=== PATIENT | male | born 1940 | race Caucasian/White ===

== ENCOUNTER 2017-04-22 14:46 | Emergency (ER) | payer OTHER ==
[2017-04-22 15:35] LABS: Basophils # (A) 0.1 k/uL (0-0.2); Basophils % (A) 1 %; CH 26.8; CHCM 32.3; Eosinophils # (A) 0.3 k/uL (0-0.7); Eosinophils % (A) 4 %; HCT 30.3 % (39.0-53.0); HDW 2.68; HGB 9.6 gm/dL (13.0-17.5); Hypochromasia Slight; Luc # (Auto) 0.37; Luc % (Auto) 4; Lymphocytes # (A) 1.2 k/uL (1.0-4.8); Lymphocytes % (A) 13 %; MCH 26.3 pg (25.0-35.0); MCHC 31.6 g/dL (31.0-37.0); MCV 83.2 fL (80.0-100.0); Mean Platelet Volume 7.4; Monocytes # (A) 0.5 k/uL (0-1.0); Monocytes % (A) 5 %; Neutrophils # (A) 6.9 k/uL (1.3-7.7); Neutrophils % (A) 74 %; RBC 3.64 m/uL (4.30-5.90); RDW 14.5 % (11.5-15.5); WBC 9.3 k/uL (3.8-10.6); WBC (Perox) 9.45
[2017-04-22] MEDS ORDERED: IPRATROPIUM-ALBUTEROL 3 ML NEB INHALATION STA (15:45)
[2017-04-22] MEDS ORDERED: methylPREDNISolone SOD SUCCI 125 MG/2 ML VIAL IV STA (15:46)
[2017-04-22] MEDS ORDERED: BUDESONIDE 0.5 MG/2 ML NEBU INHALATION STA (15:46)
[2017-04-22 15:47] LABS: ALT 38 U/L (21-72); AST 26 U/L (17-59); Alkaline Phosphatase 192 U/L (38-126); Anion Gap 12 mmol/L; Blood Urea Nitrogen 9 mg/dL (9-20); Calcium 8.5 mg/dL (8.4-10.2); Carbon Dioxide 23 mmol/L (22-30); Chloride 93 mmol/L (98-107); Glucose 103 mg/dL (74-99); Non-African American GFR(MDRD) >60 (>60 ml/min/1.73 sqM); Potassium 4.4 mmol/L (3.5-5.1); Sodium 128 mmol/L (137-145); Total Bilirubin 0.8 mg/dL (0.2-1.3); Total Protein 6.5 g/dL (6.3-8.2)
[2017-04-22 15:55] LABS: INR 1.2 (<1.1); Partial Thromboplastin Time 26.8 sec (22.0-30.0); Prothrombin Time 11.5 sec (9.0-12.0)
--- NOTE | 2017-04-22 15:55 | XR ---
EXAMINATION TYPE: XR chest 2V DATE OF EXAM: 04/22/2017 COMPARISON: 10/04/2015 HISTORY: Chest pain TECHNIQUE: Frontal and lateral views of the chest are obtained. FINDINGS: Heart appears enlarged. There is mild pelvic congestion. There is some pulmonary mild inte rstitial edema. There are chest leads. Thoracic aorta is atheromatous. There is no definite pleural e ffusion. IMPRESSION: There is new mild pulmonary congestion compared to old exam that is suggestive of mild h eart failure. No pleural effusion.
[2017-04-22 16:00] LABS: Creatine Kinase 97 U/L (55-170)
[2017-04-22 16:07] LABS: Creatine Kinase MB 2.1 ng/mL (0.0-2.4); Troponin I <0.012 ng/mL (0.000-0.034)
[2017-04-22 16:58] VITALS: RESP 20
--- NOTE | 2017-04-22 17:19 | ED ---
SOB HPI - General Chief Complaint: Shortness of Breath Stated Complaint: SOB Source: patient Mode of arrival: wheelchair Limitations: no limitations - History of Present Illness Initial Comments: Shortness of breath for the last to 3 weeks, he shortness of breath got worse today has a history of chronic bronchitis, asthma. He also has a component of COPD he smoked for about 20 years but he is a nonsmoker now. Eyes any chest pain no pleuritic chest pain no fever no chills according to patient hasn't no history of ischemic heart disease - Related Data Home Medications Medication Instructions Recorded Confirmed ALPRAZolam [Xanax] 0.5 mg PO HS PRN 04/22/17 04/22/17 Albuterol Nebulized [Ventolin 5 mg INHALATION QID 04/22/17 04/22/17 Nebulized] Ammonium Lactate Cream [Lac-Hydrin 1 applic TOPICAL DAILY 04/22/17 04/22/17 12% Cream] Aspirin EC [Ecotrin Low Dose] 81 mg PO DAILY 04/22/17 04/22/17 Budesonide-Formot 160-4.5 Mcg 2 puff INHALATION RT-BID 04/22/17 04/22/17 [Symbicort 160-4.5 Mcg Inhaler] Cetirizine HCl [Zyrtec] 10 mg PO DAILY 04/22/17 04/22/17 Fluticasone Propionate [Flovent 2 puff INHALATION RT-BID 04/22/17 04/22/17 Diskus] Furosemide [Lasix] 40 mg PO DAILY 04/22/17 04/22/17 Ipratropium [place] [Atrovent Hfa] 1 puff INHALATION RT-QID 04/22/17 04/22/17 Ipratropium [place] [Ipratropium 1 sprays EA NOSTRIL BID 04/22/17 04/22/17 [place] 0.03%] Ipratropium/Albuterol Sulfate 2 puff INHALATION RT-DAILY PRN 04/22/17 04/22/17 [Combivent Respimat Inhaler] Lisinopril-Hctz 20-25 mg 1 tab PO DAILY 04/22/17 04/22/17 [Zestoretic 20-25] Montelukast [Singulair] 10 mg PO DAILY 04/22/17 04/22/17 Nystatin 100,000Unit/gm Cream 1 applic TOPICAL DAILY PRN 04/22/17 04/22/17 [Mycostatin Cream] Pantoprazole [Protonix] 40 mg PO DAILY 04/22/17 04/22/17 Polyvinyl Alcohol [Artificial 1 drop BOTH EYES DAILY 04/22/17 04/22/17 Tears] Potassium Chloride [Klor-Con 10] 10 meq PO DAILY 04/22/17 04/22/17 Rosuvastatin Calcium [Crestor] 20 mg PO DAILY 04/22/17 04/22/17 Sildenafil Citrate [Viagra] 100 mg PO DAILY PRN 04/22/17 04/22/17 metFORMIN HCL [Metformin HCl] 1,000 mg PO BID 04/22/17 04/22/17 Previous Rx's Medication Instructions Recorded Furosemide [Lasix] 40 mg PO DAILY #5 tablet 04/22/17 Potassium Chloride [Klor-Con 10] 10 meq PO DAILY #5 tablet.er 04/22/17 Allergies Allergy/AdvReac Type Severity Reaction Status Date / Time cefaclor [From [facility]] Allergy Unknown Verified 04/22/17 15:45 Review of Systems ROS Statement: Those systems with pertinent positive or pertinent negative responses have been documented in the HPI. ROS Other: All systems not noted in ROS Statement are negative. Past Medical History Past Medical History: Asthma, COPD, Diabetes Mellitus, Hypertension Additional Past Medical History / Comment(s): chronic bronchitis History of Any Multi-Drug Resistant Organisms: None Reported Additional Past Surgical History / Comment(s): sharnel removal Past Psychological History: No Psychological Hx Reported Smoking Status: Former smoker Past Alcohol Use History: None Reported Past Drug Use History: None Reported General Exam - General Exam Comments Initial Comments: General: The patient is awake and alert, in no distress, and does not appear acutely ill. Skin: Skin is warm and dry and no rashes or lesions are noted. Eye: Pupils are equal, round and reactive to light, extra-ocular movements are intact; there is normal conjunctiva bilaterally. Ears, nose, mouth and throat: There are moist mucous membranes and no oral lesions. Neck: The neck is supple, there is no tenderness no JVDs noticed Cardiovascular: There is a regular rate and rhythm. Respiratory: To auscultation bilateral, crease breath sounds noticed crackles at the bases Gastrointestinal: Soft, non-distended, non-tender abdomen without masses or organomegaly noted. There is no rebound or guarding present. Bowel sounds are unremarkable. Back: There is no tenderness to palpation in the midline. There is no obvious deformity. Musculoskeletal: Normal ROM, no tenderness, There is no pedal edema. There is no calf tenderness or swelling. No cords were appreciated. Neurological: CN II-XII intact, Cranial nerves III through XII are intact. There are no obvious motor or sensory deficits. Coordination appears grossly intact. Speech is normal. Psychiatric: Cooperative, appropriate mood & affect, normal judgment. Limitations: no limitations Course Vital Signs 04/22/17 04/22/17 04/22/17 14:55 15:24 15:54 Temperature 97.3 F L Pulse Rate 96 91 Respiratory 26 H 26 H 24 Rate Blood Pressure 143/64 155/65 O2 Sat by Pulse 95 97 Oximetry 04/22/17 04/22/17 04/22/17 16:11 16:25 16:54 Temperature Pulse Rate 85 87 85 Respiratory 20 Rate Blood Pressure 129/59 O2 Sat by Pulse 98 Oximetry EKG is a sinus rhythm with the PVCs noticed right bundle branch block as well as left anterior fascicular ventricular rate is 91 NH interval is 174 QRS duration 56 QT/QTc is 428/526 and 50 mL EKG reveals normal PVCs no ST elevation noticed no ST depression noticed either Patient's labs and imaging studies were reviewed, CBC, INR, compressive metabolic panel and troponin are negative his sodium is bit low and now x-ray showed that he has a congestive heart failure based on that I recommended the patient stating hospital for serial cardiac markers and we couldn't bump up his stridor at 6 and have him seen by district scout executive and may be a quite as well but the patient is adamant that he was to go home and he is agreeable to sign the AMA form and all increase his water pill Lasix from 40 mg to 80 mg once daily for next 5 days and add some potassium as well. Now he is advised come back if if his symptoms worsen or [facility] - Reevaluation(s) Reevaluation #2: 04/22/17 17:31 Is in was offered admission for his further evaluation of his congestive heart failure so he could see district scout executive. They could do an echo and titrate his diuretics according to his needs patient wanted to leave [place] Medical Decision Making - Lab Data Result diagrams: 04/22/17 15:15 04/22/17 15:15 Lab Results 04/22/17 04/22/17 04/22/17 Range/Units 15:15 15:15 15:15 WBC 9.3 (3.8-10.6) k/uL RBC 3.64 L (4.30-5.90) m/uL Hgb 9.6 L (13.0-17.5) gm/dL Hct 30.3 L (39.0-53.0) % MCV 83.2 (80.0-100.0) fL MCH 26.3 (25.0-35.0) pg MCHC 31.6 (31.0-37.0) g/dL RDW 14.5 (11.5-15.5) % Plt Count 397 (150-450) k/uL Neutrophils % 74 % Lymphocytes % 13 % Monocytes % 5 % Eosinophils % 4 % Basophils % 1 % Neutrophils # 6.9 (1.3-7.7) k/uL Lymphocytes # 1.2 (1.0-4.8) k/uL Monocytes # 0.5 (0-1.0) k/uL Eosinophils # 0.3 (0-0.7) k/uL Basophils # 0.1 (0-0.2) k/uL Hypochromasia Slight PT (9.0-12.0) sec INR (<1.1) APTT (22.0-30.0) sec Sodium 128 L (137-145) mmol/L Potassium 4.4 (3.5-5.1) mmol/L Chloride 93 L (98-107) mmol/L Carbon Dioxide 23 (22-30) mmol/L Anion Gap 12 mmol/L BUN 9 (9-20) mg/dL Creatinine 0.83 (0.66-1.25) mg/dL Est GFR (MDRD) Af Amer >60 (>60 ml/min/1.73 sqM) Est GFR (MDRD) Non-Af >60 (>60 ml/min/1.73 sqM) Glucose 103 H (74-99) mg/dL Calcium 8.5 (8.4-10.2) mg/dL Total Bilirubin 0.8 (0.2-1.3) mg/dL AST 26 (17-59) U/L ALT 38 (21-72) U/L Alkaline Phosphatase 192 H (38-126) U/L Total Creatine Kinase 97 (55-170) U/L CK-MB (CK-2) 2.1 (0.0-2.4) ng/mL CK-MB (CK-2) Rel Index 2.2 Troponin I <0.012 (0.000-0.034) ng/mL Total Protein 6.5 (6.3-8.2) g/dL Albumin 3.5 (3.5-5.0) g/dL 04/22/17 Range/Units 15:15 WBC (3.8-10.6) k/uL RBC (4.30-5.90) m/uL Hgb (13.0-17.5) gm/dL Hct (39.0-53.0) % MCV (80.0-100.0) fL MCH (25.0-35.0) pg MCHC (31.0-37.0) g/dL RDW (11.5-15.5) % Plt Count (150-450) k/uL Neutrophils % % Lymphocytes % % Monocytes % % Eosinophils % % Basophils % % Neutrophils # (1.3-7.7) k/uL Lymphocytes # (1.0-4.8) k/uL Monocytes # (0-1.0) k/uL Eosinophils # (0-0.7) k/uL Basophils # (0-0.2) k/uL Hypochromasia PT 11.5 (9.0-12.0) sec INR 1.2 (<1.1) APTT 26.8 (22.0-30.0) sec Sodium (137-145) mmol/L Potassium (3.5-5.1) mmol/L Chloride (98-107) mmol/L Carbon Dioxide (22-30) mmol/L Anion Gap mmol/L BUN (9-20) mg/dL Creatinine (0.66-1.25) mg/dL Est GFR (MDRD) Af Amer (>60 ml/min/1.73 sqM) Est GFR (MDRD) Non-Af (>60 ml/min/1.73 sqM) Glucose (74-99) mg/dL Calcium (8.4-10.2) mg/dL Total Bilirubin (0.2-1.3) mg/dL AST (17-59) U/L ALT (21-72) U/L Alkaline Phosphatase (38-126) U/L Total Creatine Kinase (55-170) U/L CK-MB (CK-2) (0.0-2.4) ng/mL CK-MB (CK-2) Rel Index Troponin I (0.000-0.034) ng/mL Total Protein (6.3-8.2) g/dL Albumin (3.5-5.0) g/dL Disposition Clinical Impression: Dyspnea, Congestive heart failure Disposition: HOME SELF-CARE Condition: Fair Instructions: Heart Failure (ED) Prescriptions: Furosemide [Lasix] 40 mg PO DAILY #5 tablet Potassium Chloride [Klor-Con 10] 10 meq PO DAILY #5 tablet.er Referrals: Hari Greer DO [Primary Care Provider] - 1-2 days
[2017-04-22] MEDS ORDERED: FUROSEMIDE 10 MG/ML 4 ML VIAL IV STA (17:20)
[2017-04-22 17:40] VITALS: BP 137/85; PULSE 82; TEMP 97.4
== END 2017-04-22 17:39 | disposition home or self-care (01) ==
LOC: EC 14:46
DX: I11.0 Hypertensive heart disease with heart failure (principal); J44.9 Chronic obstructive pulmonary disease, unspecified; J45.909 Unspecified asthma, uncomplicated; E11.9 Type 2 diabetes mellitus without complications; Z87.891 Personal history of nicotine dependence; Z79.51 Long term (current) use of inhaled steroids; Z79.82 Long term (current) use of aspirin; Z79.84 Long term (current) use of oral hypoglycemic drugs; Z79.899 Other long term (current) drug therapy; Z88.1 Allergy status to other antibiotic agents
CPT/HCPCS: 36415; 94640; 93005; 80053; 82550; 82553; 84484; 85025; 85610; 85730; 71020; 99285; 96374; 96375; J1940; J2930

== ENCOUNTER 2017-07-10 16:17 | Inpatient (IN) | payer OTHER, MEDICARE ==
[2017-07-10] MEDS ORDERED: FUROSEMIDE 10 MG/ML 4 ML VIAL IV STA (17:38)
[2017-07-10] MEDS ORDERED: methylPREDNISolone SOD SUCCI 125 MG/2 ML VIAL IV STA (17:38)
[2017-07-10] MEDS ORDERED: IPRATROPIUM 0.5 MG/2.5 ML NEBU INHALATION STA (17:38)
[2017-07-10] MEDS ORDERED: LEVALBUTEROL NEB 1.25 MG/3 ML AMP INHALATION STA (17:38)
[2017-07-10 17:58] LABS: Anisocytosis Slight; Basophils % (A) 0 %; CH 27.5; CHCM 33.1; Eosinophils # (A) 0.3 k/uL (0-0.7); Eosinophils % (A) 3 %; HCT 34.7 % (39.0-53.0); HGB 11.2 gm/dL (13.0-17.5); Luc # (Auto) 0.31; Luc % (Auto) 4; Lymphocytes # (A) 0.7 k/uL (1.0-4.8); Lymphocytes % (A) 8 %; MCHC 32.3 g/dL (31.0-37.0); MCV 83.5 fL (80.0-100.0); Mean Platelet Volume 7.7; Monocytes # (A) 0.5 k/uL (0-1.0); Monocytes % (A) 6 %; Neutrophils # (A) 6.8 k/uL (1.3-7.7); Neutrophils % (A) 79 %; RBC 4.15 m/uL (4.30-5.90); RDW 18.4 % (11.5-15.5); WBC 8.6 k/uL (3.8-10.6); WBC (Perox) 9.17
--- NOTE | 2017-07-10 17:58 | XR ---
EXAMINATION TYPE: XR chest 2V DATE OF EXAM: 07/10/2017 COMPARISON: 04/22/2017 HISTORY: Short of breath TECHNIQUE: Frontal and lateral views of the chest are obtained. FINDINGS: Heart is enlarged. There is no heart failure. Costophrenic angles are clear. There are no hilar masses. Thoracic aorta is atheromatous. There are chest leads. IMPRESSION: Mild cardiomegaly. No active cardiopulmonary disease. No change.
[2017-07-10 18:07] LABS: ALT 64 U/L (21-72); AST 52 U/L (17-59); Alkaline Phosphatase 201 U/L (38-126); Anion Gap 13 mmol/L; Blood Urea Nitrogen 17 mg/dL (9-20); Calcium 8.8 mg/dL (8.4-10.2); Carbon Dioxide 27 mmol/L (22-30); Chloride 84 mmol/L (98-107); Glucose 90 mg/dL (74-99); Non-African American GFR(MDRD) >60 (>60 ml/min/1.73 sqM); Potassium 3.7 mmol/L (3.5-5.1); Sodium 124 mmol/L (137-145); Total Bilirubin 1.5 mg/dL (0.2-1.3); Total Protein 7.1 g/dL (6.3-8.2)
[2017-07-10 18:09] LABS: INR 1.2 (<1.2); Partial Thromboplastin Time 26.6 sec (22.0-30.0); Prothrombin Time 12.3 sec (9.0-12.0)
[2017-07-10 18:17] LABS: Creatine Kinase 156 U/L (55-170)
--- NOTE | 2017-07-10 18:22 | ED ---
SOB HPI - General Chief Complaint: Shortness of Breath Stated Complaint: CHANDAN/weakness Time Seen by Provider: 07/10/17 17:31 Source: patient Mode of arrival: wheelchair Limitations: no limitations - History of Present Illness Initial Comments: This 77-year-old white male presents with a complaint of some shortness of breath. He denies any actual chest pain. The symptoms just started earlier today. He does have a history of congestive heart failure as well as COPD. He was seen here 2 months ago and was prescribed a nebulizer and this does seem to help. He states that he received 2 shots in the ER as well as a nebulizer treatment and felt much better. The ER recommended admission at that time for congestive heart failure but he left AGAINST MEDICAL ADVICE. He has been taking the nebulizer treatments at home regularly. He was told to follow-up with a letter of credit document examiner but has not been able to arrange this as of yet through the [facility]. Denies any fevers or chills. No leg pain or swelling. No fevers or chills. He has had a slight cough but no colored production. No other complaints or modifying factors. - Related Data Home Medications Medication Instructions Recorded Confirmed ALPRAZolam [Xanax] 0.5 mg PO HS PRN 04/22/17 07/10/17 Ammonium Lactate Cream [Lac-Hydrin 1 applic TOPICAL DAILY 04/22/17 07/10/17 12% Cream] Aspirin EC [Ecotrin Low Dose] 81 mg PO DAILY 04/22/17 07/10/17 Budesonide-Formot 160-4.5 Mcg 2 puff INHALATION RT-BID 04/22/17 07/10/17 [Symbicort 160-4.5 Mcg Inhaler] Cetirizine HCl [Zyrtec] 10 mg PO DAILY 04/22/17 07/10/17 Furosemide [Lasix] 40 mg PO DAILY 04/22/17 07/10/17 Ipratropium [place] [Atrovent Hfa] 1 puff INHALATION RT-QID 04/22/17 07/10/17 Ipratropium [place] [Ipratropium 1 sprays EA NOSTRIL BID 04/22/17 07/10/17 [place] 0.03%] Ipratropium/Albuterol Sulfate 2 puff INHALATION RT-DAILY PRN 04/22/17 07/10/17 [Combivent Respimat Inhaler] Lisinopril-Hctz 20-25 mg 1 tab PO DAILY 04/22/17 07/10/17 [Zestoretic 20-25] Montelukast [Singulair] 10 mg PO DAILY 04/22/17 07/10/17 Nystatin 100,000Unit/gm Cream 1 applic TOPICAL DAILY PRN 04/22/17 07/10/17 [Mycostatin Cream] Pantoprazole [Protonix] 40 mg PO DAILY 04/22/17 07/10/17 Rosuvastatin Calcium [Crestor] 20 mg PO DAILY 04/22/17 07/10/17 Sildenafil Citrate [Viagra] 100 mg PO DAILY PRN 04/22/17 07/10/17 metFORMIN HCL [Metformin HCl] 1,000 mg PO BID 04/22/17 07/10/17 Albuterol Nebulized [Ventolin 2.5 mg INHALATION RT-QID PRN 07/10/17 07/10/17 Nebulized] Fluticasone Nasal [place] [Flonase 1 spray EA NOSTRIL DAILY 07/10/17 07/10/17 Nasal [place]] Previous Rx's Medication Instructions Recorded Potassium Chloride [Klor-Con 10] 10 meq PO DAILY #5 tablet.er 04/22/17 Allergies Allergy/AdvReac Type Severity Reaction Status Date / Time cefaclor [From [facility]] Allergy Unknown Verified 07/10/17 16:46 Review of Systems ROS Statement: Those systems with pertinent positive or pertinent negative responses have been documented in the HPI. ROS Other: All systems not noted in ROS Statement are negative. Past Medical History Past Medical History: Asthma, COPD, Diabetes Mellitus, Hypertension Additional Past Medical History / Comment(s): chronic bronchitis History of Any Multi-Drug Resistant Organisms: None Reported Additional Past Surgical History / Comment(s): sharnel removal Past Psychological History: No Psychological Hx Reported Smoking Status: Former smoker Past Alcohol Use History: None Reported Past Drug Use History: None Reported General Exam - General Exam Comments Initial Comments: GENERAL: The patient is well nourished and well hydrated. VITAL SIGNS: Heart rate, blood pressure, respiratory rate reviewed as recorded in nurse's notes. EYES: Pupils are round and reactive. Extraocular movements are intact. No conjunctival / lid redness or swelling. ENT: No external evidence of injury, swelling, or ecchymosis. Airway is patent. Throat is clear. NECK: Nontender. No swelling or evidence of injury. No subcutaneous emphysema. Trachea is midline. No thyroid mass. HEART: Regular rate and rhythm. Good peripheral pulses. LUNGS/CHEST: There is some moderate rhonchi noted bilaterally. No respiratory distress identified. No ecchymosis, subcutaneous emphysema, or tenderness. ABDOMEN: Abdomen soft without tenderness. No palpable masses or organomegaly. No peritoneal signs. No abdominal wall swelling or ecchymosis. EXTREMITIES: No extremity tenderness. Normal muscle tone and function. No thoracolumbar tenderness. NEUROLOGIC: Sensation is grossly intact. Cranial nerve exam reveals face is symmetrical, tongue is midline, speech is clear. SKIN: No abrasions or ecchymosis is noted. No induration or masses noted. PSYCHIATRIC: Alert and oriented. Appropriate behavior and judgment. Limitations: no limitations Course Vital Signs 07/10/17 07/10/17 07/10/17 16:44 17:56 18:16 Temperature 98.2 F Pulse Rate 130 H 102 H 128 H Respiratory 20 18 Rate Blood Pressure 133/74 O2 Sat by Pulse 95 100 Oximetry 07/10/17 07/10/17 18:29 19:07 Temperature 97.4 F L Pulse Rate 128 H 131 H Respiratory 18 Rate Blood Pressure 137/80 O2 Sat by Pulse 98 Oximetry Medical Decision Making - Medical Decision Making The patient was seen and examined. All diagnostics were reviewed. The EKG shows a sinus tachycardia at a rate of 131. There is evidence of a right bundle -branch block with associated ST-T wave changes. The QRS duration is elevated at 160 and the QTc interval is 587 - elevated. He does receive some Solu- Medrol as well as a DuoNeb breathing treatment and some Lasix intravenously. His laboratory showed a significant elevation of his BNP consistent with congestive heart failure. His x-ray was read out by radiology as having cardiomegaly. This is compared to previous x-ray which appears fairly similar. On previous report. No congestive heart failure. This felt that he likely does have a degree of congestive heart failure on his current x-ray as well per my review. He remains persistently tachycardic with a heart rate of 130 on the monitor. This appears quite regular. The patient had a repeat EKG done which shows a sinus tachycardia with occasional PVC and right bundle-branch block and left anterior fascicular block with a TN interval of 192, QS duration 162, and QTc interval of 575. His felt as though his QTc interval also was fairly prolonged period the possibility of an underlying arrhythmia is possible. The case is discussed with internal medicine and they're agreeable with admission. A cardiology consult will be obtained as well. - Lab Data Result diagrams: 07/10/17 17:40 07/10/17 17:40 Lab Results 07/10/17 07/10/17 07/10/17 Range/Units 17:40 17:40 17:40 WBC 8.6 (3.8-10.6) k/uL RBC 4.15 L (4.30-5.90) m/uL Hgb 11.2 L (13.0-17.5) gm/dL Hct 34.7 L (39.0-53.0) % MCV 83.5 (80.0-100.0) fL MCH 27.0 (25.0-35.0) pg MCHC 32.3 (31.0-37.0) g/dL RDW 18.4 H (11.5-15.5) % Plt Count 270 (150-450) k/uL Neutrophils % 79 % Lymphocytes % 8 % Monocytes % 6 % Eosinophils % 3 % Basophils % 0 % Neutrophils # 6.8 (1.3-7.7) k/uL Lymphocytes # 0.7 L (1.0-4.8) k/uL Monocytes # 0.5 (0-1.0) k/uL Eosinophils # 0.3 (0-0.7) k/uL Basophils # 0.0 (0-0.2) k/uL Anisocytosis Slight PT (9.0-12.0) sec INR (<1.2) APTT (22.0-30.0) sec Sodium (137-145) mmol/L Potassium (3.5-5.1) mmol/L Chloride (98-107) mmol/L Carbon Dioxide (22-30) mmol/L Anion Gap mmol/L BUN (9-20) mg/dL Creatinine (0.66-1.25) mg/dL Est GFR (MDRD) Af Amer (>60 ml/min/1.73 sqM) Est GFR (MDRD) Non-Af (>60 ml/min/1.73 sqM) Glucose (74-99) mg/dL Calcium (8.4-10.2) mg/dL Total Bilirubin (0.2-1.3) mg/dL AST (17-59) U/L ALT (21-72) U/L Alkaline Phosphatase (38-126) U/L Total Creatine Kinase 156 (55-170) U/L CK-MB (CK-2) 3.2 H* (0.0-2.4) ng/mL CK-MB (CK-2) Rel Index 2.1 Troponin I <0.012 (0.000-0.034) ng/mL NT-Pro-B Natriuret Pep 3560 pg/mL Total Protein (6.3-8.2) g/dL Albumin (3.5-5.0) g/dL 07/10/17 07/10/17 Range/Units 17:40 17:40 WBC (3.8-10.6) k/uL RBC (4.30-5.90) m/uL Hgb (13.0-17.5) gm/dL Hct (39.0-53.0) % MCV (80.0-100.0) fL MCH (25.0-35.0) pg MCHC (31.0-37.0) g/dL RDW (11.5-15.5) % Plt Count (150-450) k/uL Neutrophils % % Lymphocytes % % Monocytes % % Eosinophils % % Basophils % % Neutrophils # (1.3-7.7) k/uL Lymphocytes # (1.0-4.8) k/uL Monocytes # (0-1.0) k/uL Eosinophils # (0-0.7) k/uL Basophils # (0-0.2) k/uL Anisocytosis PT 12.3 H (9.0-12.0) sec INR 1.2 H (<1.2) APTT 26.6 (22.0-30.0) sec Sodium 124 L (137-145) mmol/L Potassium 3.7 (3.5-5.1) mmol/L Chloride 84 L (98-107) mmol/L Carbon Dioxide 27 (22-30) mmol/L Anion Gap 13 mmol/L BUN 17 (9-20) mg/dL Creatinine 0.78 (0.66-1.25) mg/dL Est GFR (MDRD) Af Amer >60 (>60 ml/min/1.73 sqM) Est GFR (MDRD) Non-Af >60 (>60 ml/min/1.73 sqM) Glucose 90 (74-99) mg/dL Calcium 8.8 (8.4-10.2) mg/dL Total Bilirubin 1.5 H (0.2-1.3) mg/dL AST 52 (17-59) U/L ALT 64 (21-72) U/L Alkaline Phosphatase 201 H (38-126) U/L Total Creatine Kinase (55-170) U/L CK-MB (CK-2) (0.0-2.4) ng/mL CK-MB (CK-2) Rel Index Troponin I (0.000-0.034) ng/mL NT-Pro-B Natriuret Pep pg/mL Total Protein 7.1 (6.3-8.2) g/dL Albumin 4.2 (3.5-5.0) g/dL Disposition Clinical Impression: Dyspnea, COPD exacerbation, Prolonged Q-T interval on ECG, Anemia, Sinus tachycardia, CHF exacerbation Disposition: ADMITTED IP TO THIS HOSP Condition: Fair Referrals: Hari Greer DO [Primary Care Provider] - 1-2 days Time of Disposition: 19:26 Decision Date: 07/10/17 Decision Time: 19:26
[2017-07-10 18:30] LABS: Troponin I <0.012 ng/mL (0.000-0.034)
[2017-07-10 18:32] LABS: Creatine Kinase MB 3.2 ng/mL (0.0-2.4)
[2017-07-10] MEDS ORDERED: IPRATROPIUM-ALBUTEROL 3 ML NEB INHALATION PRN ×2 (19:31→19:52)
[2017-07-10] MEDS ORDERED: NON-FORMULARY DRUG (Sildenafil Citrate [Viagra] 100 MG) PO PRN (19:31)
[2017-07-10] MEDS ORDERED: ALPRAZolam 0.5 MG TAB PO PRN (19:31)
[2017-07-10] MEDS ORDERED: NYSTATIN 100,000UNIT/GM CREAM 30 GM TUBE TOPICAL PRN (19:31)
[2017-07-10] MEDS ORDERED: IPRATROPIUM 0.5 MG/2.5 ML NEBU INHALATION SCH (20:00)
[2017-07-10] MEDS ORDERED: LEVALBUTEROL NEB (CONC) 1.25 MG/0.5 ML AMP INHALATION SCH (20:00)
[2017-07-10] MEDS: IPRATROPIUM-ALBUTEROL 3 ML NEB INHALATION SCH (21:10)
[2017-07-10] MEDS: SYMBICORT 160-4.5 MCG INHALER INHALATION SCH (21:10)
[2017-07-10] MEDS: metFORMIN 500 MG TAB PO SCH (23:02)
[2017-07-10] MEDS: FUROSEMIDE 10 MG/ML 4 ML VIAL IV SCH (23:06)
[2017-07-10] MEDS: methylPREDNISolone SOD SUCCI 125 MG/2 ML VIAL IV SCH (23:06)
[2017-07-10] MEDS: NITROGLYCERIN OINT 1 INCH/GM PACKET TOPICAL SCH (23:07)
[2017-07-10 23:12] LABS: Glucose,Whole Blood 195 mg/dL (75-99)
[2017-07-11 01:19] LABS: Troponin I <0.012 ng/mL (0.000-0.034)
[2017-07-11 01:21] LABS: Creatine Kinase MB 2.7 ng/mL (0.0-2.4)
[2017-07-11 05:36] LABS: Glucose,Whole Blood 157 mg/dL (75-99)
[2017-07-11 06:53] LABS: Troponin I 0.016 ng/mL (0.000-0.034)
[2017-07-11 06:54] LABS: Creatine Kinase MB 3.6 ng/mL (0.0-2.4)
[2017-07-11] MEDS: INSULIN LISPRO (humaLOG) 300 UNIT/3 ML VIAL SQ SCH ×4 (06:55→21:23)
[2017-07-11] MEDS: PANTOPRAZOLE 40 MG TABLET PO SCH (06:57)
[2017-07-11] MEDS: IPRATROPIUM-ALBUTEROL 3 ML NEB INHALATION SCH ×4 (07:56→20:05)
[2017-07-11] MEDS: SYMBICORT 160-4.5 MCG INHALER INHALATION SCH ×2 (07:56→20:05)
[2017-07-11] MEDS: NITROGLYCERIN OINT 1 INCH/GM PACKET TOPICAL SCH ×4 (08:07→21:23)
[2017-07-11] MEDS: MONTELUKAST 10 MG TAB PO SCH (08:07)
[2017-07-11] MEDS: ATORVASTATIN 40 MG TAB PO SCH (08:07)
[2017-07-11] MEDS: LORATADINE 10 MG TAB PO SCH (08:07)
[2017-07-11] MEDS: FUROSEMIDE 10 MG/ML 4 ML VIAL IV SCH ×2 (08:07→21:23)
[2017-07-11] MEDS: metFORMIN 500 MG TAB PO SCH ×2 (08:07→21:23)
[2017-07-11] MEDS: POTASSIUM CHLORIDE ER 10 MEQ TAB.ER.PRT PO SCH (08:07)
[2017-07-11] MEDS: FLUTICASONE 50MCG/SPRAY NASAL 16GM EA NOSTRIL SCH (08:08)
[2017-07-11] MEDS: AMMONIUM LACTATE 12% CREAM 140 GM TUBE TOPICAL SCH (08:08)
[2017-07-11] MEDS: ENOXAPARIN 40 MG/0.4 ML SYRINGE SQ SCH (08:08)
[2017-07-11] MEDS: methylPREDNISolone SOD SUCCI 125 MG/2 ML VIAL IV SCH ×2 (08:08→12:19)
[2017-07-11 08:39] LABS: Hemoglobin A1C 6.2 % (4.2-6.1)
[2017-07-11] MEDS ORDERED: ASPIRIN 325 MG TAB PO SCH (09:00)
[2017-07-11] MEDS ORDERED: LISINOPRIL-HCTZ 20-25 MG 1 EACH TAB PO SCH (09:00)
--- NOTE | 2017-07-11 11:24 | ECHOF ---
Referral Reason:Heart Failure MEASUREMENTS -------- HEIGHT: 172.7 cm WEIGHT: 93.4 kg BP: 105/56 IVSd: 1.1 cm (0.6 - 1.1) LVIDd: 5.8 cm (3.9 - 5.3) LVPWd: 0.9 cm (0.6 - 1.1) EDV(Teich): 165 ml IVSs: 1.2 cm LVIDs: 5.0 cm LVPWs: 1.0 cm %IVS Thck: 12 % ESV(Teich): 117 ml EF(Teich): 29 % %FS: 14 % SV(Teich): 48 ml LVOT Diam: 2.2 cm Ao Diam: 3.4 cm (2.0 - 3.7) AV Cusp: 0.9 cm (1.5 - 2.6) LA Diam: 4.6 cm (2.7 - 3.8) MV EXCURSION: 15.618 mm (> 18.000) MV EF SLOPE: 94 mm/s (70 - 150) EPSS: 2.8 cm MV E Darell: 1.13 m/s MV DecT: 93 ms MV Dec Jack: 12.1 m/s MV A Darell: 0.56 m/s MV E/A Ratio: 2.00 MV PHT: 27 ms E/E': 21.75 E': 0.05 m/s MR Vmax: 4.59 m/s MR maxP.28 mmHg LVOT Vmax: 0.71 m/s LVOT maxP.00 mmHg LVOT Vmax: 0.77 m/s LVOT Vmean: 0.55 m/s LVOT maxP.35 mmHg LVOT meanP.35 mmHg LVOT Env.Ti: 369 ms LVOT VTI: 20.3 cm AV Vmax: 2.24 m/s AV maxP.12 mmHg YULISSA Vmax, Pt: 1.2 cm YULISSA Vmax: 1.3 cm AV Vmax: 2.35 m/s AV Vmean: 1.74 m/s AV maxP.09 mmHg AV meanP.43 mmHg AV Env.Ti: 231 ms AV VTI: 40.2 cm YULISSA Vmax: 1.2 cm YULISSA (VTI): 1.9 cm YULISSA Vmax, Pt: 1.1 cm TR Vmax: 2.81 m/s TR maxP.49 mmHg RAP: 5.00 mmHg RVSP: 36.49 mmHg FINDINGS -------- Sinus rhythm. This was a technically adequate study. The left ventricle is mildly dilated. Left ventricular wall thickness is normal. There is moderate global hypokinesis of LV . Overall left ventricular systolic function is severely impaired with, an EF between 25 - 30 %. The right ventricle is normal in size and function. The left atrium is moderately dilated. The right atrium is normal in size. Aortic valve is trileaflet and is mildly thickened. There is mild aortic stenosis present. Peak/mean gradient across the Aortic Valve is 22.09mmHg / 13.43mmHg. The mitral valve leaflets are mildly thickened. Moderate mitral regurgitation is present. Moderate tricuspid regurgitation present. The right ventricular systolic pressure, as measured by Doppler, is 36.49mmHg. Trace/mild (physiologic) pulmonic regurgitation. The aortic root size is normal. The pericardium is normal. CONCLUSIONS -------- 1. Sinus rhythm. 2. Aortic valve is trileaflet and is mildly thickened. 3. There is mild aortic stenosis present. 4. Peak/mean gradient across the Aortic Valve is 22.09mmHg / 13.43mmHg. 5. The mitral valve leaflets are mildly thickened. 6. Moderate mitral regurgitation is present. 7. Moderate tricuspid regurgitation present. 8. The right ventricular systolic pressure, as measured by Doppler, is 36.49mmHg. 9. Trace/mild (physiologic) pulmonic regurgitation. 10. The aortic root size is normal. 11. The pericardium is normal. 12. This was a technically adequate study. 13. The left ventricle is mildly dilated. 14. Left ventricular wall thickness is normal. 15. There is moderate global hypokinesis of LV . 16. Overall left ventricular systolic function is severely impaired with, an EF between 25 - 30 %. 17. The right ventricle is normal in size and function. 18. The left atrium is moderately dilated. 19. The right atrium is normal in size. JOB SITE SUPERVISOR: Mandy Clinton [facility]
[2017-07-11 13:03] LABS: Anion Gap 13 mmol/L; Blood Urea Nitrogen 16 mg/dL (9-20); Calcium 8.2 mg/dL (8.4-10.2); Carbon Dioxide 26 mmol/L (22-30); Chloride 86 mmol/L (98-107); Glucose 142 mg/dL (74-99); Non-African American GFR(MDRD) >60 (>60 ml/min/1.73 sqM); Potassium 3.3 mmol/L (3.5-5.1); Sodium 125 mmol/L (137-145)
[2017-07-11 14:06] LABS: Glucose,Whole Blood 235 mg/dL (75-99)
[2017-07-11 14:11] VITALS: BMI 31.3
--- NOTE | 2017-07-11 14:24 | P.CRDCN ---
History of Present Illness Consult date: 07/11/17 Requesting physician: Tiera Ac Consult reason: congestive heart failure Chief complaint: Shortness of breath History of present illness: This is a 77-year-old gentleman with history of hypertension, diabetes , hyperlipidemia, COPD, who presents to the hospital with symptoms of progressively worsening shortness of breath. He denies any prior history of congestive heart failure but states that he was in the hospital recently in April , he had symptoms at that time of shortness of breath and a chest x-ray was performed. He states that he was not told in the emergency room he had congestive heart failure however the emergency room physician did contact his physician at the ID and the patient subsequently received a phone call from his ID doctor telling him he had congestive heart failure and would need to follow with the tensile tester. Patient was told that an appointment would be made with cardiology in [facility]. He states that he has not yet been notified of an appointment. EKG on arrival showed sinus tachycardia right bundle branch block pattern nonspecific ST-T wave changes. Chest x-ray reveals new mild pulmonary congestion as compared with prior. Echocardiogram with Doppler study was performed which revealed moderate mitral regurg, moderate tricuspid regurg, ejection fraction of 25-30%. Moderate global hypokinesia. White blood cell count 8.6, hemoglobin 11.2, platelet count 270, sodium on admission 128, 125 this morning, potassium 3.3, BUN 16, creatinine 0.6. Total bilirubin 1.5, alk phos 201. Troponins 0.012, 0.012, 0.012 and 0.016. BNP level 3560, TSH 1.8. Patient was initiated on IV Lasix in the emergency room, he has been putting out quite a bit a urine according to him, weight unchanged from yesterday. I did explain to the patient that his echo showed weak heart muscle. He states that he has never been told in the past to have a weak heart muscle. He denies any prior myocardial infarction, no recent viral infection. We would recommend to continue IV Lasix, decrease aspirin to 81 mg daily, replace potassium. Patient will need to be put on beta prashanth, JUANITO inhibitor, and Aldactone. Once stable from a heart failure perspective patient will require further cardiac testing to rule out any underlying coronary artery disease. Past Medical History Past Medical History: Asthma, COPD, Diabetes Mellitus, Hypertension Additional Past Medical History / Comment(s): chronic bronchitis, legally blind , hard of hearing History of Any Multi-Drug Resistant Organisms: None Reported Additional Past Surgical History / Comment(s): sharnel removal Past Psychological History: No Psychological Hx Reported Smoking Status: Former smoker Past Alcohol Use History: None Reported Past Drug Use History: None Reported Medications and Allergies Home Medications Medication Instructions Recorded Confirmed Type ALPRAZolam [Xanax] 0.5 mg PO HS PRN 04/22/17 07/10/17 History Ammonium Lactate Cream [Lac-Hydrin 1 applic TOPICAL DAILY 04/22/17 07/10/17 History 12% Cream] Aspirin EC [Ecotrin Low Dose] 81 mg PO DAILY 04/22/17 07/10/17 History Budesonide-Formot 160-4.5 Mcg 2 puff INHALATION RT-BID 04/22/17 07/10/17 History [Symbicort 160-4.5 Mcg Inhaler] Cetirizine HCl [Zyrtec] 10 mg PO DAILY 04/22/17 07/10/17 History Furosemide [Lasix] 40 mg PO DAILY 04/22/17 07/10/17 History Ipratropium [place] [Atrovent Hfa] 1 puff INHALATION RT-QID 04/22/17 07/10/17 History Ipratropium [place] [Ipratropium 1 sprays EA NOSTRIL BID 04/22/17 07/10/17 History [place] 0.03%] Ipratropium/Albuterol Sulfate 2 puff INHALATION RT-DAILY PRN 04/22/17 07/10/17 History [Combivent Respimat Inhaler] Lisinopril-Hctz 20-25 mg 1 tab PO DAILY 04/22/17 07/10/17 History [Zestoretic 20-25] Montelukast [Singulair] 10 mg PO DAILY 04/22/17 07/10/17 History Nystatin 100,000Unit/gm Cream 1 applic TOPICAL DAILY PRN 04/22/17 07/10/17 History [Mycostatin Cream] Pantoprazole [Protonix] 40 mg PO DAILY 04/22/17 07/10/17 History Rosuvastatin Calcium [Crestor] 20 mg PO DAILY 04/22/17 07/10/17 History Sildenafil Citrate [Viagra] 100 mg PO DAILY PRN 04/22/17 07/10/17 History metFORMIN HCL [Metformin HCl] 1,000 mg PO BID 04/22/17 07/10/17 History Albuterol Nebulized [Ventolin 2.5 mg INHALATION RT-QID PRN 07/10/17 07/10/17 History Nebulized] Fluticasone Nasal [place] [Flonase 1 spray EA NOSTRIL DAILY 07/10/17 07/10/17 History Nasal [place]] Allergies Allergy/AdvReac Type Severity Reaction Status Date / Time cefaclor [From [facility]] Allergy Unknown Verified 07/10/17 16:46 Physical Exam Vitals: Vital Signs Temp Pulse Pulse Resp BP BP Pulse Ox 07/11/17 12:08 80 07/11/17 11:53 80 07/11/17 11:24 96.8 F L 81 20 107/60 97 07/11/17 08:18 80 07/11/17 08:00 96.8 F L 92 20 119/58 98 07/11/17 07:56 80 07/11/17 04:00 96.7 F L 75 20 105/56 96 07/11/17 00:00 96.7 F L 105 H 20 140/68 100 07/10/17 21:24 84 07/10/17 21:10 88 07/10/17 20:30 97.1 F L 131 H 20 136/79 97 07/10/17 19:07 97.4 F L 131 H 18 137/80 98 07/10/17 18:29 128 H 07/10/17 18:16 128 H 07/10/17 17:56 102 H 18 100 07/10/17 16:44 98.2 F 130 H 20 133/74 95 Intake and Output 07/10/17 07/11/17 07/11/17 22:59 06:59 14:59 Intake Total 10 200 Output Total 1000 250 Balance -990 -250 200 Intake: IV 10 0.9 10 Oral 200 Output: Urine 1000 250 Other: Voiding Method Toilet Toilet # Voids 1 1 Weight 93.7 kg 93.5 kg PHYSICAL EXAMINATION: HEENT: Head is atraumatic, normocephalic. Pupils equal, round. Neck is supple. There is elevated jugular venous pressure. HEART EXAMINATION: Heart S1, S2 systolic murmur is heard . CHEST EXAMINATION: Lungs clear with mild diminished air entry to the bases ABDOMEN: Soft, nontender. Bowel sounds are heard. No organomegaly noted. EXTREMITIES: 1+ peripheral pulses with no evidence of peripheral edema and no calf tenderness noted. NEUROLOGIC patient is awake, alert and oriented -3. . Results 07/10/17 17:40 07/11/17 06:01 Cardiac Enzymes 07/10/17 07/10/17 07/11/17 Range/Units 17:40 17:40 00:40 AST 52 (17-59) U/L CK-MB (CK-2) 3.2 H* 2.7 H* (0.0-2.4) ng/mL Troponin I <0.012 <0.012 (0.000-0.034) ng/mL 07/11/17 Range/Units 06:01 AST (17-59) U/L CK-MB (CK-2) 3.6 H* (0.0-2.4) ng/mL Troponin I 0.016 (0.000-0.034) ng/mL Coagulation 07/10/17 Range/Units 17:40 PT 12.3 H (9.0-12.0) sec APTT 26.6 (22.0-30.0) sec CBC 07/10/17 Range/Units 17:40 WBC 8.6 (3.8-10.6) k/uL RBC 4.15 L (4.30-5.90) m/uL Hgb 11.2 L (13.0-17.5) gm/dL Hct 34.7 L (39.0-53.0) % Plt Count 270 (150-450) k/uL Comprehensive Metabolic Panel 07/10/17 07/11/17 Range/Units 17:40 06:01 Sodium 124 L 125 L (137-145) mmol/L Potassium 3.7 3.3 L (3.5-5.1) mmol/L Chloride 84 L 86 L (98-107) mmol/L Carbon Dioxide 27 26 (22-30) mmol/L BUN 17 16 (9-20) mg/dL Creatinine 0.78 0.69 (0.66-1.25) mg/dL Glucose 90 142 H (74-99) mg/dL Calcium 8.8 8.2 L (8.4-10.2) mg/dL AST 52 (17-59) U/L ALT 64 (21-72) U/L Alkaline Phosphatase 201 H (38-126) U/L Total Protein 7.1 (6.3-8.2) g/dL Albumin 4.2 (3.5-5.0) g/dL Current Medications Generic Name Dose Route Start Last Admin Trade Name Freq PRN Reason Stop Dose Admin Albuterol/Ipratropium 3 ml 07/10/17 20:00 07/11/17 11:53 Duoneb 0.5 Mg-3 Mg/3 Ml Soln INHALATION 3 ml RT-QID ELIANE Administration Albuterol/Ipratropium 3 ml 07/10/17 19:52 Duoneb 0.5 Mg-3 Mg/3 Ml Soln INHALATION RT-Q2H PRN Shortness Of Breath Or Wheezing Alprazolam 0.5 mg 07/10/17 19:31 07/10/17 23:06 Xanax PO 0.5 mg HS PRN Administration Anxiety Aspirin 325 mg 07/11/17 09:00 07/11/17 08:07 Aspirin PO 325 mg DAILY ELIANE Administration Atorvastatin Calcium 40 mg 07/11/17 09:00 07/11/17 08:07 Lipitor PO 40 mg DAILY ELIANE Administration Budesonide/Formoterol Fumarate 2 puff 07/10/17 20:00 07/11/17 07:56 Symbicort 160-4.5 Mcg Inhaler INHALATION 2 puff RT-BID ELIANE Administration Enoxaparin Sodium 40 mg 07/11/17 09:00 07/11/17 08:08 Lovenox SQ 40 mg DAILY ELIANE Administration Fluticasone Propionate 1 spray 07/11/17 09:00 07/11/17 08:08 Flonase Nasal [place] EA NOSTRIL 1 spray DAILY ELIANE Administration Furosemide 40 mg 07/11/17 21:00 Lasix IV Q12HR ELIANE Insulin Human Lispro 0 unit 07/11/17 07:30 07/11/17 12:20 Humalog SQ 8 unit ACHS ELIANE Administration Protocol Lactic Acid 1 applic 07/11/17 09:00 07/11/17 08:08 Ammonium Lactate TOPICAL 1 applic DAILY ELIANE Administration Loratadine 10 mg 07/11/17 09:00 07/11/17 08:07 Claritin PO 10 mg DAILY ELIANE Administration Metformin HCl 1,000 mg 07/10/17 21:00 07/11/17 08:07 Glucophage PO 1,000 mg BID ELIANE Administration Montelukast Sodium 10 mg 07/11/17 09:00 07/11/17 08:07 Singulair PO 10 mg DAILY ELIANE Administration Nitroglycerin 1 inch 07/10/17 22:00 07/11/17 12:20 Nitro-Bid Oint TOPICAL 1 inch QID ELIANE Administration Nystatin 1 applic 07/10/17 19:31 Mycostatin Cream TOPICAL DAILY PRN Rash Pantoprazole Sodium 40 mg 07/11/17 07:30 07/11/17 06:57 Protonix PO 40 mg AC-BRKFST ELIANE Administration Potassium Chloride 10 meq 07/11/17 09:00 07/11/17 08:07 K-Dur 10 PO 10 meq DAILY ELIANE Administration Prednisone 40 mg 07/12/17 09:00 PO DAILY ELIANE Intake and Output 07/10/17 07/11/17 07/11/17 22:59 06:59 14:59 Intake Total 10 200 Output Total 1000 250 Balance -990 -250 200 Intake: IV 10 0.9 10 Oral 200 Output: Urine 1000 250 Other: Voiding Method Toilet Toilet # Voids 1 1 Weight 93.7 kg 93.5 kg 07/10/17 17:40 07/11/17 06:01 EKG Interpretations (text) EKG shows a sinus tachycardia with a right bundle branch block pattern nonspecific ST-T wave changes Assessment and Plan Plan: Assessment and plan #1 congestive heart failure systolic acute on chronic #2 cardiomyopathy, exact etiology unknown, ejection fraction 25-30%. #3 diabetes #4 hypertension #5 hyperlipidemia #6 COPD #7 enlarged prostate #8 hyponatremia, 125 #9 hypokalemia Plan Echocardiogram with Doppler study revealed an ejection fraction of 25-30%. We will continue IV Lasix for one more day. Check lytes BUN and creatinine in the morning. We will also start the patient on Aldactone, as well as a beta prashanth and JUANITO inhibitor. Once the patient is stable from a heart failure perspective, he will need further cardiac evaluation to rule out underlying coronary artery disease and to determine the cause of ischemic cardiomyopathy. Further recommendations to follow DNP note has been reviewed, I agree with a documented findings and plan of care. Patient was seen and examined.
--- NOTE | 2017-07-11 14:30 | P.CRDCN ---
History of Present Illness History of present illness: Please see full dictation by Dr. garza. Patient presenting with increasing shortness of breath. Found to be in heart failure and is being diuresed as we speak. Able to lie flat in bed systolic murmur audible. No lower extremity edema external jugular veins prominent while in the lying position. Mild scattered rhonchi bilaterally over the lung [place] Impression Newly diagnosed cardiomyopathy left ventricle ejection fraction of 25-30% with mild aortic stenosis and moderate mitral regurgitation and moderate tricuspid regurgitation and a mildly dilated left ventricle Diabetes adult-onset, hypertension, dyslipidemia Suggest Continue IV Lasix for today and we will switch to by mouth Lasix tomorrow, start beta blockers selective, Aldactone and JUANITO inhibitor as. He is already on aspirin and statins. Tomorrow we'll switch to by mouth Lasix. I would stop his steroids Continue telemetry monitoring. I anticipate he'll be in the hospital for at least 2-3 days for heart failure management. Past Medical History Past Medical History: Asthma, COPD, Diabetes Mellitus, Hypertension Additional Past Medical History / Comment(s): chronic bronchitis, legally blind , hard of hearing History of Any Multi-Drug Resistant Organisms: None Reported Additional Past Surgical History / Comment(s): sharnel removal Past Psychological History: No Psychological Hx Reported Smoking Status: Former smoker Past Alcohol Use History: None Reported Past Drug Use History: None Reported Medications and Allergies Home Medications Medication Instructions Recorded Confirmed Type ALPRAZolam [Xanax] 0.5 mg PO HS PRN 04/22/17 07/10/17 History Ammonium Lactate Cream [Lac-Hydrin 1 applic TOPICAL DAILY 04/22/17 07/10/17 History 12% Cream] Aspirin EC [Ecotrin Low Dose] 81 mg PO DAILY 04/22/17 07/10/17 History Budesonide-Formot 160-4.5 Mcg 2 puff INHALATION RT-BID 04/22/17 07/10/17 History [Symbicort 160-4.5 Mcg Inhaler] Cetirizine HCl [Zyrtec] 10 mg PO DAILY 04/22/17 07/10/17 History Furosemide [Lasix] 40 mg PO DAILY 04/22/17 07/10/17 History Ipratropium [place] [Atrovent Hfa] 1 puff INHALATION RT-QID 04/22/17 07/10/17 History Ipratropium [place] [Ipratropium 1 sprays EA NOSTRIL BID 04/22/17 07/10/17 History [place] 0.03%] Ipratropium/Albuterol Sulfate 2 puff INHALATION RT-DAILY PRN 04/22/17 07/10/17 History [Combivent Respimat Inhaler] Lisinopril-Hctz 20-25 mg 1 tab PO DAILY 04/22/17 07/10/17 History [Zestoretic 20-25] Montelukast [Singulair] 10 mg PO DAILY 04/22/17 07/10/17 History Nystatin 100,000Unit/gm Cream 1 applic TOPICAL DAILY PRN 04/22/17 07/10/17 History [Mycostatin Cream] Pantoprazole [Protonix] 40 mg PO DAILY 04/22/17 07/10/17 History Rosuvastatin Calcium [Crestor] 20 mg PO DAILY 04/22/17 07/10/17 History Sildenafil Citrate [Viagra] 100 mg PO DAILY PRN 04/22/17 07/10/17 History metFORMIN HCL [Metformin HCl] 1,000 mg PO BID 04/22/17 07/10/17 History Albuterol Nebulized [Ventolin 2.5 mg INHALATION RT-QID PRN 07/10/17 07/10/17 History Nebulized] Fluticasone Nasal [place] [Flonase 1 spray EA NOSTRIL DAILY 07/10/17 07/10/17 History Nasal [place]] Allergies Allergy/AdvReac Type Severity Reaction Status Date / Time cefaclor [From [facility]] Allergy Unknown Verified 07/10/17 16:46 Physical Exam Vitals: Vital Signs Temp Pulse Pulse Resp BP BP Pulse Ox 07/11/17 12:08 80 07/11/17 11:53 80 07/11/17 11:24 96.8 F L 81 20 107/60 97 07/11/17 08:18 80 07/11/17 08:00 96.8 F L 92 20 119/58 98 07/11/17 07:56 80 07/11/17 04:00 96.7 F L 75 20 105/56 96 07/11/17 00:00 96.7 F L 105 H 20 140/68 100 07/10/17 21:24 84 07/10/17 21:10 88 07/10/17 20:30 97.1 F L 131 H 20 136/79 97 07/10/17 19:07 97.4 F L 131 H 18 137/80 98 07/10/17 18:29 128 H 07/10/17 18:16 128 H 07/10/17 17:56 102 H 18 100 07/10/17 16:44 98.2 F 130 H 20 133/74 95 Intake and Output 07/10/17 07/11/17 07/11/17 22:59 06:59 14:59 Intake Total 10 200 Output Total 1000 250 Balance -990 -250 200 Intake: IV 10 0.9 10 Oral 200 Output: Urine 1000 250 Other: Voiding Method Toilet Toilet # Voids 1 1 Weight 93.7 kg 93.5 kg 93.5 kg Patient Weight 07/12/17 06:59 Weight 93.5 kg Results 07/10/17 17:40 07/11/17 06:01 Cardiac Enzymes 07/10/17 07/10/17 07/11/17 Range/Units 17:40 17:40 00:40 AST 52 (17-59) U/L CK-MB (CK-2) 3.2 H* 2.7 H* (0.0-2.4) ng/mL Troponin I <0.012 <0.012 (0.000-0.034) ng/mL 07/11/17 Range/Units 06:01 AST (17-59) U/L CK-MB (CK-2) 3.6 H* (0.0-2.4) ng/mL Troponin I 0.016 (0.000-0.034) ng/mL Coagulation 07/10/17 Range/Units 17:40 PT 12.3 H (9.0-12.0) sec APTT 26.6 (22.0-30.0) sec CBC 07/10/17 Range/Units 17:40 WBC 8.6 (3.8-10.6) k/uL RBC 4.15 L (4.30-5.90) m/uL Hgb 11.2 L (13.0-17.5) gm/dL Hct 34.7 L (39.0-53.0) % Plt Count 270 (150-450) k/uL Comprehensive Metabolic Panel 07/10/17 07/11/17 Range/Units 17:40 06:01 Sodium 124 L 125 L (137-145) mmol/L Potassium 3.7 3.3 L (3.5-5.1) mmol/L Chloride 84 L 86 L (98-107) mmol/L Carbon Dioxide 27 26 (22-30) mmol/L BUN 17 16 (9-20) mg/dL Creatinine 0.78 0.69 (0.66-1.25) mg/dL Glucose 90 142 H (74-99) mg/dL Calcium 8.8 8.2 L (8.4-10.2) mg/dL AST 52 (17-59) U/L ALT 64 (21-72) U/L Alkaline Phosphatase 201 H (38-126) U/L Total Protein 7.1 (6.3-8.2) g/dL Albumin 4.2 (3.5-5.0) g/dL Current Medications Generic Name Dose Route Start Last Admin Trade Name Freq PRN Reason Stop Dose Admin Albuterol/Ipratropium 3 ml 07/10/17 20:00 07/11/17 11:53 Duoneb 0.5 Mg-3 Mg/3 Ml Soln INHALATION 3 ml RT-QID ELIANE Administration Albuterol/Ipratropium 3 ml 07/10/17 19:52 Duoneb 0.5 Mg-3 Mg/3 Ml Soln INHALATION RT-Q2H PRN Shortness Of Breath Or Wheezing Alprazolam 0.5 mg 07/10/17 19:31 07/10/17 23:06 Xanax PO 0.5 mg HS PRN Administration Anxiety Aspirin 81 mg 07/11/17 14:30 Aspirin PO DAILY [facility] Atorvastatin Calcium 40 mg 07/11/17 09:00 07/11/17 08:07 Lipitor PO 40 mg DAILY ELIANE Administration Budesonide/Formoterol Fumarate 2 puff 07/10/17 20:00 07/11/17 07:56 Symbicort 160-4.5 Mcg Inhaler INHALATION 2 puff RT-BID ELIANE Administration Enoxaparin Sodium 40 mg 07/11/17 09:00 07/11/17 08:08 Lovenox SQ 40 mg DAILY ELIANE Administration Fluticasone Propionate 1 spray 07/11/17 09:00 07/11/17 08:08 Flonase Nasal [place] EA NOSTRIL 1 spray DAILY ELIANE Administration Furosemide 40 mg 07/11/17 21:00 Lasix IV Q12HR [facility] Insulin Human Lispro 0 unit 07/11/17 07:30 07/11/17 12:20 Humalog SQ 8 unit ACHS [facility] Administration Protocol Lactic Acid 1 applic 07/11/17 09:00 07/11/17 08:08 Ammonium Lactate TOPICAL 1 applic DAILY [facility] Administration Lisinopril 2.5 mg 07/11/17 14:30 Zestril PO DAILY [facility] Loratadine 10 mg 07/11/17 09:00 07/11/17 08:07 Claritin PO 10 mg DAILY ELIANE Administration Metformin HCl 1,000 mg 07/10/17 21:00 07/11/17 08:07 Glucophage PO 1,000 mg BID [facility] Administration Metoprolol Tartrate 50 mg 07/11/17 14:30 Lopressor PO DAILY [facility] Montelukast Sodium 10 mg 07/11/17 09:00 07/11/17 08:07 Singulair PO 10 mg DAILY [facility] Administration Nitroglycerin 1 inch 07/10/17 22:00 07/11/17 12:20 Nitro-Bid Oint TOPICAL 1 inch QID [facility] Administration Nystatin 1 applic 07/10/17 19:31 Mycostatin Cream TOPICAL DAILY PRN Rash Pantoprazole Sodium 40 mg 07/11/17 07:30 07/11/17 06:57 Protonix PO 40 mg AC-BRKFST [facility] Administration Potassium Chloride 10 meq 07/11/17 09:00 07/11/17 08:07 K-Dur 10 PO 10 meq DAILY [facility] Administration Prednisone 40 mg 07/12/17 09:00 PO DAILY [facility] Spironolactone 25 mg 07/11/17 14:30 Aldactone PO DAILY [facility] Intake and Output 07/10/17 07/11/17 07/11/17 22:59 06:59 14:59 Intake Total 10 200 Output Total 1000 250 Balance -990 -250 200 Intake: IV 10 0.9 10 Oral 200 Output: Urine 1000 250 Other: Voiding Method Toilet Toilet # Voids 1 1 Weight 93.7 kg 93.5 kg 93.5 kg Patient Weight 07/12/17 06:59 Weight 93.5 kg 07/10/17 17:40 07/11/17 06:01
--- NOTE | 2017-07-11 14:34 | P.HPIM ---
History of Present Illness Patient is on-year-old gentleman with known history of Discharge Failure with Recent Ejection Fraction Being 25-30% on Echo Cardiac Exam That Was Done Yesterday Came in with Compensative Shortness of Breath Denied Any Significant Orthopnea or PND Although Patient Does Have Elevated BNP but No Pulmonary Edema on the Chest X-Ray. Patient Apparently Was Wheezing and He Believes His COPD Exacerbation Patient Does Have History of COPD Patient Was on Treatment for both COPD exacerbation and the HEART failure exacerbation patient sodium is 124 and came up to 125 today and has been urinating well. An patient's symptoms of shortness of breath improved and wanted to go home. Patient denied any significant orthopnea or PND although he does have elevated JVD. Review of Systems REVIEW OF SYSTEMS: CONSTITUTIONAL: No fever, no malaise, no fatigue. HEENT: No recent visual problems or hearing problems. Denied any sore throat. CARDIOVASCULAR: No chest pain, orthopnea, PND, no palpitations, no syncope. PULMONARY: Patient does have cough unable to bring up anything no hemoptysis. GASTROINTESTINAL: No diarrhea, no nausea, no vomiting, no abdominal pain. Normoactive bowel sounds. NEUROLOGICAL: No headaches, no weakness, no numbness. HEMATOLOGICAL: Denies any bleeding or petechiae. GENITOURINARY: Denies any burning micturition, frequency, or urgency. MUSCULOSKELETAL/RHEUMATOLOGICAL: Denies any joint pain, swelling, or any muscle pain. ENDOCRINE: Denies any polyuria or polydipsia. The rest of the 14-point review of systems is negative. Past Medical History Past Medical History: Asthma, COPD, Diabetes Mellitus, Hypertension Additional Past Medical History / Comment(s): chronic bronchitis, legally blind , hard of hearing History of Any Multi-Drug Resistant Organisms: None Reported Additional Past Surgical History / Comment(s): sharnel removal Past Psychological History: No Psychological Hx Reported Smoking Status: Former smoker Past Alcohol Use History: None Reported Past Drug Use History: None Reported Medications and Allergies Home Medications Medication Instructions Recorded Confirmed Type ALPRAZolam [Xanax] 0.5 mg PO HS PRN 04/22/17 07/10/17 History Ammonium Lactate Cream [Lac-Hydrin 1 applic TOPICAL DAILY 04/22/17 07/10/17 History 12% Cream] Aspirin EC [Ecotrin Low Dose] 81 mg PO DAILY 04/22/17 07/10/17 History Budesonide-Formot 160-4.5 Mcg 2 puff INHALATION RT-BID 04/22/17 07/10/17 History [Symbicort 160-4.5 Mcg Inhaler] Cetirizine HCl [Zyrtec] 10 mg PO DAILY 04/22/17 07/10/17 History Furosemide [Lasix] 40 mg PO DAILY 04/22/17 07/10/17 History Ipratropium [place] [Atrovent Hfa] 1 puff INHALATION RT-QID 04/22/17 07/10/17 History Ipratropium [place] [Ipratropium 1 sprays EA NOSTRIL BID 04/22/17 07/10/17 History [place] 0.03%] Ipratropium/Albuterol Sulfate 2 puff INHALATION RT-DAILY PRN 04/22/17 07/10/17 History [Combivent Respimat Inhaler] Lisinopril-Hctz 20-25 mg 1 tab PO DAILY 04/22/17 07/10/17 History [Zestoretic 20-25] Montelukast [Singulair] 10 mg PO DAILY 04/22/17 07/10/17 History Nystatin 100,000Unit/gm Cream 1 applic TOPICAL DAILY PRN 04/22/17 07/10/17 History [Mycostatin Cream] Pantoprazole [Protonix] 40 mg PO DAILY 04/22/17 07/10/17 History Rosuvastatin Calcium [Crestor] 20 mg PO DAILY 04/22/17 07/10/17 History Sildenafil Citrate [Viagra] 100 mg PO DAILY PRN 04/22/17 07/10/17 History metFORMIN HCL [Metformin HCl] 1,000 mg PO BID 04/22/17 07/10/17 History Albuterol Nebulized [Ventolin 2.5 mg INHALATION RT-QID PRN 07/10/17 07/10/17 History Nebulized] Fluticasone Nasal [place] [Flonase 1 spray EA NOSTRIL DAILY 07/10/17 07/10/17 History Nasal [place]] Allergies Allergy/AdvReac Type Severity Reaction Status Date / Time cefaclor [From [facility]] Allergy Unknown Verified 07/10/17 16:46 Physical Exam Vitals: Vital Signs Temp Pulse Pulse Resp BP BP Pulse Ox 07/11/17 12:08 80 07/11/17 11:53 80 07/11/17 11:24 96.8 F L 81 20 107/60 97 07/11/17 08:18 80 07/11/17 08:00 96.8 F L 92 20 119/58 98 07/11/17 07:56 80 07/11/17 04:00 96.7 F L 75 20 105/56 96 07/11/17 00:00 96.7 F L 105 H 20 140/68 100 07/10/17 21:24 84 07/10/17 21:10 88 07/10/17 20:30 97.1 F L 131 H 20 136/79 97 07/10/17 19:07 97.4 F L 131 H 18 137/80 98 07/10/17 18:29 128 H 07/10/17 18:16 128 H 07/10/17 17:56 102 H 18 100 07/10/17 16:44 98.2 F 130 H 20 133/74 95 Intake and Output 07/10/17 07/11/17 07/11/17 22:59 06:59 14:59 Intake Total 10 200 Output Total 1000 250 Balance -990 -250 200 Intake: IV 10 0.9 10 Oral 200 Output: Urine 1000 250 Other: Voiding Method Toilet Toilet # Voids 1 1 Weight 93.7 kg 93.5 kg 93.5 kg Patient Weight 07/12/17 06:59 Weight 93.5 kg PHYSICAL EXAMINATION: GENERAL: The patient is alert and oriented x3, not in any acute distress. Well developed, well nourished. HEENT: Pupils are round and equally reacting to light. EOMI. No scleral icterus. No conjunctival pallor. Normocephalic, atraumatic. No pharyngeal erythema. No thyromegaly. CARDIOVASCULAR: S1 and S2 present. No murmurs, rubs, or gallops. She does have elevated JVD may have S3 as well PULMONARY: Chest is clear to auscultation, expiratory wheezing was appreciated I did not appreciate any significant crackles. ABDOMEN: Soft, nontender, nondistended, normoactive bowel sounds. No palpable organomegaly. MUSCULOSKELETAL: No joint swelling or deformity. EXTREMITIES: No cyanosis, clubbing, or pedal edema. NEUROLOGICAL: Gross neurological examination did not reveal any focal deficits. SKIN: No rashes. Results CBC & Chem 7: 08/29/17 17:40 07/11/17 06:01 Labs: Abnormal Lab Results - Last 24 Hours (Table) 07/10/17 07/10/17 07/10/17 Range/Units 17:40 17:40 17:40 RBC 4.15 L (4.30-5.90) m/uL Hgb 11.2 L (13.0-17.5) gm/dL Hct 34.7 L (39.0-53.0) % RDW 18.4 H (11.5-15.5) % Lymphocytes # 0.7 L (1.0-4.8) k/uL PT (9.0-12.0) sec INR (<1.2) Sodium 124 L (137-145) mmol/L Potassium (3.5-5.1) mmol/L Chloride 84 L (98-107) mmol/L Glucose (74-99) mg/dL POC Glucose (mg/dL) (75-99) mg/dL Hemoglobin A1c (4.2-6.1) % Calcium (8.4-10.2) mg/dL Total Bilirubin 1.5 H (0.2-1.3) mg/dL Alkaline Phosphatase 201 H (38-126) U/L CK-MB (CK-2) 3.2 H* (0.0-2.4) ng/mL 07/10/17 07/10/17 07/11/17 Range/Units 17:40 23:11 00:40 RBC (4.30-5.90) m/uL Hgb (13.0-17.5) gm/dL Hct (39.0-53.0) % RDW (11.5-15.5) % Lymphocytes # (1.0-4.8) k/uL PT 12.3 H (9.0-12.0) sec INR 1.2 H (<1.2) Sodium (137-145) mmol/L Potassium (3.5-5.1) mmol/L Chloride (98-107) mmol/L Glucose (74-99) mg/dL POC Glucose (mg/dL) 195 H (75-99) mg/dL Hemoglobin A1c (4.2-6.1) % Calcium (8.4-10.2) mg/dL Total Bilirubin (0.2-1.3) mg/dL Alkaline Phosphatase (38-126) U/L CK-MB (CK-2) 2.7 H* (0.0-2.4) ng/mL 07/11/17 07/11/17 07/11/17 Range/Units 05:35 06:01 06:01 RBC (4.30-5.90) m/uL Hgb (13.0-17.5) gm/dL Hct (39.0-53.0) % RDW (11.5-15.5) % Lymphocytes # (1.0-4.8) k/uL PT (9.0-12.0) sec INR (<1.2) Sodium (137-145) mmol/L Potassium (3.5-5.1) mmol/L Chloride (98-107) mmol/L Glucose (74-99) mg/dL POC Glucose (mg/dL) 157 H (75-99) mg/dL Hemoglobin A1c 6.2 H (4.2-6.1) % Calcium (8.4-10.2) mg/dL Total Bilirubin (0.2-1.3) mg/dL Alkaline Phosphatase (38-126) U/L CK-MB (CK-2) 3.6 H* (0.0-2.4) ng/mL 07/11/17 07/11/17 Range/Units 06:01 11:15 RBC (4.30-5.90) m/uL Hgb (13.0-17.5) gm/dL Hct (39.0-53.0) % RDW (11.5-15.5) % Lymphocytes # (1.0-4.8) k/uL PT (9.0-12.0) sec INR (<1.2) Sodium 125 L (137-145) mmol/L Potassium 3.3 L (3.5-5.1) mmol/L Chloride 86 L (98-107) mmol/L Glucose 142 H (74-99) mg/dL POC Glucose (mg/dL) 235 H (75-99) mg/dL Hemoglobin A1c (4.2-6.1) % Calcium 8.2 L (8.4-10.2) mg/dL Total Bilirubin (0.2-1.3) mg/dL Alkaline Phosphatase (38-126) U/L CK-MB (CK-2) (0.0-2.4) ng/mL Thrombosis Risk Factor Assmnt - Choose All That Apply Each Factor Represents 1 point: Abnormal pulmonary function (COPD) Each Risk Factor Represents 3 Points: Age 75 years or older Thrombosis Risk Factor Assessment Total Risk Factor Score: 4 Thrombosis Risk Factor Assessment Level: Moderate Risk Assessment and Plan Plan: 1 Acute hypoxic respiratory failure: Secondary to possible congestive heart failure exacerbation patient has chronic systolic dysfunction with acute exacerbation. Patient also has competent of COPD exacerbation although will not require IVC steroids patient steroids will be switched to oral steroids. Continue with IV Lasix. #2 cardiomyopathy etiology of cardio myopathy is not clear and patient does have chronic systolic dysfunction with acute exacerbation. #3 COPD exacerbation next line #4 hypovolemic hyponatremia: Serum sodium is expected to improve with IV Lasix. Kidney function and lites will be monitored. #5 hypertension #6 hyperlipidemia #7 benign prostatic hypertrophy #8 hypokalemia secondary to diuretic therapy patient is also on hydrochlorothiazide which significantly drop sodium and potassium more than Lasix because of which hydrochlorothiazide will be discontinued
[2017-07-11 16:36] LABS: Glucose,Whole Blood 126 mg/dL (75-99)
[2017-07-11] MEDS: METOPROLOL TARTRATE 50 MG TAB PO SCH (17:12)
[2017-07-11] MEDS: ASPIRIN 81 MG CHEW PO SCH (17:12)
[2017-07-11] MEDS: LISINOPRIL 2.5 MG TAB PO SCH (17:13)
[2017-07-11] MEDS: SPIRONOLACTONE 25 MG TAB PO SCH (17:13)
[2017-07-11 21:05] LABS: Glucose,Whole Blood 160 mg/dL (75-99)
[2017-07-11] MEDS: MELATONIN 5 MG TABLET PO SCH (21:23)
[2017-07-12 06:04] LABS: Glucose,Whole Blood 117 mg/dL (75-99)
[2017-07-12 06:08] LABS: Anion Gap 11 mmol/L; Blood Urea Nitrogen 27 mg/dL (9-20); Calcium 8.8 mg/dL (8.4-10.2); Carbon Dioxide 27 mmol/L (22-30); Chloride 86 mmol/L (98-107); Glucose 111 mg/dL (74-99); Non-African American GFR(MDRD) >60 (>60 ml/min/1.73 sqM); Potassium 3.6 mmol/L (3.5-5.1); Sodium 124 mmol/L (137-145)
[2017-07-12] MEDS: INSULIN LISPRO (humaLOG) 300 UNIT/3 ML VIAL SQ SCH ×4 (06:33→21:27)
[2017-07-12] MEDS: PANTOPRAZOLE 40 MG TABLET PO SCH (06:34)
[2017-07-12] MEDS: IPRATROPIUM-ALBUTEROL 3 ML NEB INHALATION SCH ×4 (08:04→19:57)
[2017-07-12] MEDS: SYMBICORT 160-4.5 MCG INHALER INHALATION SCH ×2 (08:04→19:57)
[2017-07-12] MEDS: AMMONIUM LACTATE 12% CREAM 140 GM TUBE TOPICAL SCH (08:31)
[2017-07-12] MEDS: ATORVASTATIN 40 MG TAB PO SCH (08:33)
[2017-07-12] MEDS: FLUTICASONE 50MCG/SPRAY NASAL 16GM EA NOSTRIL SCH (08:33)
[2017-07-12] MEDS: METOPROLOL TARTRATE 50 MG TAB PO SCH (08:33)
[2017-07-12] MEDS: SPIRONOLACTONE 25 MG TAB PO SCH (08:33)
[2017-07-12] MEDS: metFORMIN 500 MG TAB PO SCH ×2 (08:33→21:28)
[2017-07-12] MEDS: MONTELUKAST 10 MG TAB PO SCH (08:33)
[2017-07-12] MEDS: POTASSIUM CHLORIDE ER 10 MEQ TAB.ER.PRT PO SCH (08:33)
[2017-07-12] MEDS: LORATADINE 10 MG TAB PO SCH (08:33)
[2017-07-12] MEDS: NITROGLYCERIN OINT 1 INCH/GM PACKET TOPICAL SCH (08:34)
[2017-07-12] MEDS: ENOXAPARIN 40 MG/0.4 ML SYRINGE SQ SCH (08:34)
[2017-07-12] MEDS: ASPIRIN 81 MG CHEW PO SCH (08:34)
[2017-07-12] MEDS: LISINOPRIL 2.5 MG TAB PO SCH (08:34)
[2017-07-12] MEDS: FUROSEMIDE 10 MG/ML 4 ML VIAL IV SCH (08:34)
[2017-07-12] MEDS ORDERED: predniSONE 20 MG TAB PO SCH (09:00)
--- NOTE | 2017-07-12 11:35 | P.PN ---
Progress Note - Text Patient is much improved. He is down 3 kg and his weight blood pressure 107/56 mmHg. he is in atrial flutter him a rate controlled Potassium 3.6 today renal function stable Normal TSH normal troponin Impression Severe cardio myopathy Acute and chronic congestive heart failure, systolic Atrial flutter Plan Stop oral potassium Increase Aldactone to 50 g by mouth daily Change to Toprol-XL 50 mg starting tomorrow, DC tartrate Continue low-dose lisinopril Anticoagulated with Coumadin, patient follows up at the [place] [facility] with Lovenox in the interim Future plans include workup for cardio myopathy and definitive management of atrial flutter He will need long-term anticoagulation Please see full note by Dr. garza
[2017-07-12 11:39] LABS: Glucose,Whole Blood 168 mg/dL (75-99)
--- NOTE | 2017-07-12 11:48 | P.PN ---
Subjective Principal diagnosis: CHF This is a 77-year-old gentleman with history of hypertension, diabetes , hyperlipidemia, COPD, who presented to the hospital with symptoms of progressively worsening shortness of breath. An echocardiogram with Doppler study was performed which revealed an ejection fraction of 25-30%. Patient was initiated on IV Lasix, has diuresed well overall. Patient is also found to be in atrial flutter, rate under control. His weight today is down 3 kg. Blood pressure 108/70, heart rate in the 80s. Sodium 124, potassium 3.6, BUN 27, creatinine 0.9. We will discontinue the IV Lasix today start the patient on oral diuretics. Discontinue Nitropaste. Change metoprolol tartrate to Succinate. Discontinue potassium. Discontinue Nitropaste. Objective - Vital Signs Vital signs: Vital Signs Temp 96.8 F L 07/12/17 08:00 Pulse 84 07/12/17 08:18 Resp 20 07/12/17 08:00 BP 107/56 07/12/17 08:00 Pulse Ox 99 07/12/17 08:00 Intake & Output 07/11/17 07/12/17 07/12/17 18:59 06:59 18:59 Intake Total 300 20 180 Balance 300 20 180 Weight 93.5 kg 90.9 kg Intake: IV 20 0.9 20 Oral 300 180 Other: # Voids 1 - Exam PHYSICAL EXAMINATION: HEENT: Head is atraumatic, normocephalic. Pupils equal, round. Neck is supple. There is no elevated jugular venous pressure. HEART EXAMINATION: Heart S1 and S2 systolic murmur is heard CHEST EXAMINATION: Is clear with mild diminished since. ABDOMEN: Soft, nontender. Bowel sounds are heard. No organomegaly noted. EXTREMITIES: 1+ peripheral pulses with no evidence of peripheral edema and no calf tenderness noted. NEUROLOGIC patient is awake, alert and oriented -3. . - Labs CBC & Chem 7: 07/10/17 17:40 07/12/17 05:35 Labs: Abnormal Lab Results - Last 24 Hours (Table) 07/11/17 07/11/17 07/11/17 Range/Units 06:01 11:15 16:34 Sodium 125 L (137-145) mmol/L Potassium 3.3 L (3.5-5.1) mmol/L Chloride 86 L (98-107) mmol/L BUN (9-20) mg/dL Glucose 142 H (74-99) mg/dL POC Glucose (mg/dL) 235 H 126 H (75-99) mg/dL Calcium 8.2 L (8.4-10.2) mg/dL 07/11/17 07/12/17 07/12/17 Range/Units 21:04 05:35 06:02 Sodium 124 L (137-145) mmol/L Potassium (3.5-5.1) mmol/L Chloride 86 L (98-107) mmol/L BUN 27 H (9-20) mg/dL Glucose 111 H (74-99) mg/dL POC Glucose (mg/dL) 160 H 117 H (75-99) mg/dL Calcium (8.4-10.2) mg/dL Microbiology - Last 24 Hours (Table) 07/10/17 17:40 Blood Culture - Preliminary Blood No Growth after 24 hours Assessment and Plan Plan: Assessment and plan #1 congestive heart failure systolic acute on chronic #2 cardiomyopathy, exact etiology unknown, ejection fraction 25-30%. #3 diabetes #4 hypertension #5 hyperlipidemia #6 COPD #7 enlarged prostate #8 hyponatremia, 124 #9 hypokalemia #10 atrial flutter, chronic persistent Plan From cardiology's perspective, we'll discontinue the IV Lasix today and start the patient on oral diuretics. Discontinue Nitropaste. Discontinue potassium. Increase Lovenox to 90 subcu twice a day and start the patient on Coumadin. He needs anticoagulation because of his atrial flutter. Patient may go home in the next 24-48 hours. He will need a workup regarding his cardiomyopathy, he will also require flutter ablation down the road.'s was all explained to the patient in detail by Dr. Riley. DNP note has been reviewed, I agree with a documented findings and plan of care. Patient was seen and examined.
--- NOTE | 2017-07-12 12:23 | P.PN ---
Subjective Patient was admitted with shortness of breath is being treated for COPD exacerbation as well as CHF exacerbation and the patient remains hyponatremic but the sodium remained stable at 124 patient was initially hypervolemic and now becoming hypovolemic probably and patient's Lasix need to be switched to oral same thing was discussed with cardiology. Patient denied any fever, chills, nausea, vomiting, shortness of breath, cough but patient is still wheezing minimally. Objective - Vital Signs Vital signs: Vital Signs Temp 96.7 F L 07/12/17 11:44 Pulse 80 07/12/17 11:51 Resp 20 07/12/17 11:44 BP 116/60 07/12/17 11:44 Pulse Ox 97 07/12/17 11:44 Intake & Output 07/11/17 07/12/17 07/12/17 18:59 06:59 18:59 Intake Total 300 20 180 Balance 300 20 180 Weight 93.5 kg 90.9 kg Intake: IV 20 0.9 20 Oral 300 180 Other: # Voids 1 2 - Exam PHYSICAL EXAMINATION: GENERAL: The patient is alert and oriented x3, not in any acute distress. Well developed, well nourished. HEENT: Pupils are round and equally reacting to light. EOMI. No scleral icterus. No conjunctival pallor. Normocephalic, atraumatic. No pharyngeal erythema. No thyromegaly. CARDIOVASCULAR: S1 and S2 present. No murmurs, rubs, or gallops. PULMONARY: Chest is clear to auscultation, minimal expiratory wheezing was still appreciated with limited air entry into bilateral lung n[place]and. ABDOMEN: Soft, nontender, nondistended, normoactive bowel sounds. No palpable organomegaly. MUSCULOSKELETAL: No joint swelling or deformity. EXTREMITIES: No cyanosis, clubbing, or pedal edema. NEUROLOGICAL: Gross neurological examination did not reveal any focal deficits. SKIN: No rashes. - Labs CBC & Chem 7: 07/10/17 17:40 07/12/17 05:35 Labs: Abnormal Lab Results - Last 24 Hours (Table) 07/11/17 07/11/17 07/11/17 Range/Units 06:01 11:15 16:34 Sodium 125 L (137-145) mmol/L Potassium 3.3 L (3.5-5.1) mmol/L Chloride 86 L (98-107) mmol/L BUN (9-20) mg/dL Glucose 142 H (74-99) mg/dL POC Glucose (mg/dL) 235 H 126 H (75-99) mg/dL Calcium 8.2 L (8.4-10.2) mg/dL 07/11/17 07/12/17 07/12/17 Range/Units 21:04 05:35 06:02 Sodium 124 L (137-145) mmol/L Potassium (3.5-5.1) mmol/L Chloride 86 L (98-107) mmol/L BUN 27 H (9-20) mg/dL Glucose 111 H (74-99) mg/dL POC Glucose (mg/dL) 160 H 117 H (75-99) mg/dL Calcium (8.4-10.2) mg/dL 07/12/17 Range/Units 11:37 Sodium (137-145) mmol/L Potassium (3.5-5.1) mmol/L Chloride (98-107) mmol/L BUN (9-20) mg/dL Glucose (74-99) mg/dL POC Glucose (mg/dL) 168 H (75-99) mg/dL Calcium (8.4-10.2) mg/dL Microbiology - Last 24 Hours (Table) 07/10/17 17:40 Blood Culture - Preliminary Blood No Growth after 24 hours Assessment and Plan Plan: 1 Acute hypoxic respiratory failure: Secondary to possible congestive heart failure exacerbation patient has chronic systolic dysfunction with acute exacerbation. Patient also has competent of COPD exacerbation although will not require IVC steroids patient steroids will be switched to oral steroids. IV Lasix probably need to switch to oral today #2 cardiomyopathy etiology of cardio myopathy is not clear and patient does have chronic systolic dysfunction with acute exacerbation. #3 COPD exacerbation next line #4 hypovolemic hyponatremia: Initially hypervolemic hyponatremia now hypovolemic hyponatremia. Lasix need to be switched to oral #5 hypertension #6 hyperlipidemia #7 benign prostatic hypertrophy #8 hypokalemia secondary to diuretic therapy patient is also on hydrochlorothiazide which significantly drop sodium and potassium more than Lasix because of which hydrochlorothiazide will be discontinued
[2017-07-12 16:30] LABS: Glucose,Whole Blood 172 mg/dL (75-99)
[2017-07-12] MEDS: DOXYCYCLINE 50 MG CAP PO SCH ×2 (17:05→21:27)
[2017-07-12] MEDS: FUROSEMIDE 40 MG TAB PO SCH (17:05)
[2017-07-12] MEDS ORDERED: WARFARIN 5 MG TAB PO ONE (18:00)
[2017-07-12 21:17] LABS: Glucose,Whole Blood 143 mg/dL (75-99)
[2017-07-12] MEDS: ENOXAPARIN 80 MG/0.8 ML SYRINGE SQ SCH (21:27)
[2017-07-12] MEDS: MELATONIN 5 MG TABLET PO SCH (21:28)
[2017-07-12] MEDS: BISACODYL 5 MG TABLET.DR PO PRN (21:28)
[2017-07-13 06:07] LABS: Glucose,Whole Blood 103 mg/dL (75-99)
[2017-07-13] MEDS: INSULIN LISPRO (humaLOG) 300 UNIT/3 ML VIAL SQ SCH ×4 (06:14→20:52)
[2017-07-13] MEDS: PANTOPRAZOLE 40 MG TABLET PO SCH (06:22)
[2017-07-13 06:57] LABS: Anion Gap 12 mmol/L; Blood Urea Nitrogen 31 mg/dL (9-20); Calcium 8.8 mg/dL (8.4-10.2); Carbon Dioxide 28 mmol/L (22-30); Chloride 86 mmol/L (98-107); Glucose 94 mg/dL (74-99); Non-African American GFR(MDRD) >60 (>60 ml/min/1.73 sqM); Potassium 3.7 mmol/L (3.5-5.1); Sodium 126 mmol/L (137-145)
[2017-07-13] MEDS: AMMONIUM LACTATE 12% CREAM 140 GM TUBE TOPICAL SCH (08:17)
[2017-07-13] MEDS: MONTELUKAST 10 MG TAB PO SCH (08:22)
[2017-07-13] MEDS: ASPIRIN 81 MG CHEW PO SCH (08:22)
[2017-07-13] MEDS: FUROSEMIDE 40 MG TAB PO SCH ×2 (08:22→16:24)
[2017-07-13] MEDS: LISINOPRIL 2.5 MG TAB PO SCH (08:22)
[2017-07-13] MEDS: SPIRONOLACTONE 25 MG TAB PO SCH (08:22)
[2017-07-13] MEDS: ENOXAPARIN 80 MG/0.8 ML SYRINGE SQ SCH ×2 (08:22→20:52)
[2017-07-13] MEDS: metFORMIN 500 MG TAB PO SCH ×2 (08:22→20:52)
[2017-07-13] MEDS: LORATADINE 10 MG TAB PO SCH (08:22)
[2017-07-13] MEDS: ATORVASTATIN 40 MG TAB PO SCH (08:22)
[2017-07-13] MEDS: DOXYCYCLINE 50 MG CAP PO SCH ×2 (08:22→20:52)
[2017-07-13] MEDS: METOPROLOL SUCCINATE (ER) 50 MG TAB.ER.24H PO SCH (08:22)
[2017-07-13] MEDS: FLUTICASONE 50MCG/SPRAY NASAL 16GM EA NOSTRIL SCH (08:23)
[2017-07-13] MEDS: IPRATROPIUM-ALBUTEROL 3 ML NEB INHALATION SCH ×4 (08:24→19:10)
[2017-07-13] MEDS: SYMBICORT 160-4.5 MCG INHALER INHALATION SCH ×2 (08:24→19:10)
[2017-07-13 09:46] LABS: INR 1.3 (<1.2); Prothrombin Time 12.9 sec (9.0-12.0)
[2017-07-13 11:28] LABS: Glucose,Whole Blood 113 mg/dL (75-99)
--- NOTE | 2017-07-13 12:19 | P.PN ---
Subjective Principal diagnosis: CHF This is a 77-year-old gentleman with history of hypertension, diabetes , hyperlipidemia, COPD, who presented to the hospital with symptoms of progressively worsening shortness of breath. An echocardiogram with Doppler study was performed which revealed an ejection fraction of 25-30%. Patient was initiated on IV Lasix, has diuresed well overall. Patient is also found to be in atrial flutter, rate under control. His weight today is down 3 kg. Blood pressure 108/70, heart rate in the 80s. Sodium 124, potassium 3.6, BUN 27, creatinine 0.9. We will discontinue the IV Lasix today start the patient on oral diuretics. Discontinue Nitropaste. Change metoprolol tartrate to Succinate. Discontinue potassium. Discontinue Nitropaste. 07/13/2017 Patient seen and examined this morning, feeling well overall. He may be able to be discharged from cardiology's perspective. Objective - Vital Signs Vital signs: Vital Signs Temp 96.8 F L 07/13/17 11:52 Pulse 104 H 07/13/17 11:57 Resp 20 07/13/17 11:52 BP 111/56 07/13/17 11:52 Pulse Ox 94 L 07/13/17 11:52 Intake & Output 07/12/17 07/13/17 07/13/17 18:59 06:59 18:59 Intake Total 730 20 180 Balance 730 20 180 Weight 91.4 kg Intake: IV 20 0.9 20 Oral 730 180 Other: Voiding Method Toilet # Voids 2 2 - Exam PHYSICAL EXAMINATION: HEENT: Head is atraumatic, normocephalic. Pupils equal, round. Neck is supple. There is no elevated jugular venous pressure. HEART EXAMINATION: Heart S1 and S2 systolic murmur is heard CHEST EXAMINATION: Is clear with mild diminished since. ABDOMEN: Soft, nontender. Bowel sounds are heard. No organomegaly noted. EXTREMITIES: 1+ peripheral pulses with no evidence of peripheral edema and no calf tenderness noted. NEUROLOGIC patient is awake, alert and oriented -3. . - Labs CBC & Chem 7: 07/10/17 17:40 07/13/17 06:17 Labs: Abnormal Lab Results - Last 24 Hours (Table) 07/12/17 07/12/17 07/13/17 Range/Units 16:27 21:16 06:02 PT (9.0-12.0) sec INR (<1.2) Sodium (137-145) mmol/L Chloride (98-107) mmol/L BUN (9-20) mg/dL POC Glucose (mg/dL) 172 H 143 H 103 H (75-99) mg/dL 07/13/17 07/13/17 07/13/17 Range/Units 06:17 06:17 11:25 PT 12.9 H (9.0-12.0) sec INR 1.3 H (<1.2) Sodium 126 L (137-145) mmol/L Chloride 86 L (98-107) mmol/L BUN 31 H (9-20) mg/dL POC Glucose (mg/dL) 113 H (75-99) mg/dL Microbiology - Last 24 Hours (Table) 07/10/17 17:40 Blood Culture - Preliminary Blood No Growth after 48 hours Assessment and Plan Plan: Assessment and plan #1 congestive heart failure systolic acute on chronic #2 cardiomyopathy, exact etiology unknown, ejection fraction 25-30%. #3 diabetes #4 hypertension #5 hyperlipidemia #6 COPD #7 enlarged prostate #8 hyponatremia, 124 #9 hypokalemia #10 atrial flutter, chronic persistent Plan Cardiology's perspective, patient may be able to be discharged home today. We' ll make him a follow-up appointment with Dr. Riley in the office post discharge. DNP note has been reviewed, I agree with a documented findings and plan of care. Patient was seen and examined.
[2017-07-13] MEDS: predniSONE 10 MG TAB PO SCH (14:07)
--- NOTE | 2017-07-13 16:25 | P.PN ---
Subjective Patient was admitted with shortness of breath is being treated for COPD exacerbation as well as CHF exacerbation pt has a ef of 20% was initially on lasix then changed to po lasix serum NA is increased pt denies having orthopnea or PND, chest pain, viry today however is sob with exrertion. - Exam PHYSICAL EXAMINATION: GENERAL: The patient is alert and oriented x3, not in any acute distress. Well developed, well nourished. HEENT: Pupils are round and equally reacting to light. EOMI. No scleral icterus. No conjunctival pallor. Normocephalic, atraumatic. No pharyngeal erythema. No thyromegaly. CARDIOVASCULAR: S1 and S2 present. No murmurs, rubs, or gallops. PULMONARY: Chest is clear to auscultation, minimal expiratory wheezing was still appreciated with limited air entry into bilateral lung noland. ABDOMEN: Soft, nontender, nondistended, normoactive bowel sounds. No palpable organomegaly. MUSCULOSKELETAL: No joint swelling or deformity. EXTREMITIES: No cyanosis, clubbing, or pedal edema. NEUROLOGICAL: Gross neurological examination did not reveal any focal deficits. SKIN: No rashes. Assessment and Plan Plan: 1 Acute hypoxic respiratory failure: Secondary to possible congestive heart failure exacerbation patient has chronic systolic dysfunction with acute exacerbation. Patient also has competent of COPD exacerbation although will not require IVC steroids patient steroids will be switched to oral steroids. IV Lasix probably need to switch to oral today #2 cardiomyopathy etiology of cardio myopathy is not clear and patient does have chronic systolic dysfunction with acute exacerbation. #3 COPD exacerbation next line #4 hypervolemic hyponatremia: euvolemic at this time. dc hctz completely fluid restriction #5 hypertension #6 hyperlipidemia #7 benign prostatic hypertrophy #8 hypokalemia secondary to diuretic therapy patient is also on hydrochlorothiazide which significantly drop sodium and potassium more than Lasix because of which hydrochlorothiazide will be discontinued dc home james Objective - Vital Signs Vital signs: Vital Signs Temp 96.8 F L 07/13/17 11:52 Pulse 92 07/13/17 16:18 Resp 20 07/13/17 11:52 BP 111/56 07/13/17 11:52 Pulse Ox 94 L 07/13/17 11:52 Intake & Output 07/12/17 07/13/17 07/13/17 18:59 06:59 18:59 Intake Total 730 20 180 Balance 730 20 180 Weight 91.4 kg Intake: IV 20 0.9 20 Oral 730 180 Other: Voiding Method Toilet # Voids 2 2 - Labs CBC & Chem 7: 07/10/17 17:40 07/13/17 06:17 Labs: Abnormal Lab Results - Last 24 Hours (Table) 07/12/17 07/12/17 07/13/17 Range/Units 16:27 21:16 06:02 PT (9.0-12.0) sec INR (<1.2) Sodium (137-145) mmol/L Chloride (98-107) mmol/L BUN (9-20) mg/dL POC Glucose (mg/dL) 172 H 143 H 103 H (75-99) mg/dL 07/13/17 07/13/17 07/13/17 Range/Units 06:17 06:17 11:25 PT 12.9 H (9.0-12.0) sec INR 1.3 H (<1.2) Sodium 126 L (137-145) mmol/L Chloride 86 L (98-107) mmol/L BUN 31 H (9-20) mg/dL POC Glucose (mg/dL) 113 H (75-99) mg/dL Microbiology - Last 24 Hours (Table) 07/10/17 17:40 Blood Culture - Preliminary Blood No Growth after 48 hours
[2017-07-13 16:30] LABS: Glucose,Whole Blood 134 mg/dL (75-99)
[2017-07-13] MEDS ORDERED: WARFARIN 5 MG TAB PO ONE (18:00)
[2017-07-13 20:31] LABS: Glucose,Whole Blood 167 mg/dL (75-99)
[2017-07-13] MEDS: MELATONIN 5 MG TABLET PO SCH (20:52)
[2017-07-14 06:01] LABS: Glucose,Whole Blood 115 mg/dL (75-99)
[2017-07-14 06:04] LABS: Anisocytosis Slight; Basophils % (A) 0 %; CH 25.8; Eosinophils % (A) 0 %; HCT 35.4 % (39.0-53.0); HDW 2.72; HGB 11.6 gm/dL (13.0-17.5); Hypochromasia Slight; Luc # (Auto) 0.28; Luc % (Auto) 3; Lymphocytes # (A) 0.9 k/uL (1.0-4.8); Lymphocytes % (A) 10 %; MCH 26.5 pg (25.0-35.0); MCHC 32.7 g/dL (31.0-37.0); Mean Platelet Volume 7.5; Monocytes # (A) 0.5 k/uL (0-1.0); Monocytes % (A) 5 %; Neutrophils # (A) 7.4 k/uL (1.3-7.7); Neutrophils % (A) 82 %; RBC 4.37 m/uL (4.30-5.90); RDW 17.1 % (11.5-15.5); WBC 9.1 k/uL (3.8-10.6); WBC (Perox) 9.34
[2017-07-14 06:15] LABS: INR 1.7 (<1.2); Prothrombin Time 16.7 sec (9.0-12.0)
[2017-07-14 06:17] LABS: Anion Gap 14 mmol/L; Blood Urea Nitrogen 34 mg/dL (9-20); Calcium 8.6 mg/dL (8.4-10.2); Carbon Dioxide 25 mmol/L (22-30); Chloride 84 mmol/L (98-107); Glucose 106 mg/dL (74-99); Non-African American GFR(MDRD) >60 (>60 ml/min/1.73 sqM); Potassium 4.2 mmol/L (3.5-5.1); Sodium 123 mmol/L (137-145)
[2017-07-14] MEDS: INSULIN LISPRO (humaLOG) 300 UNIT/3 ML VIAL SQ SCH ×2 (06:21→11:55)
[2017-07-14] MEDS: PANTOPRAZOLE 40 MG TABLET PO SCH (06:58)
[2017-07-14] MEDS: IPRATROPIUM-ALBUTEROL 3 ML NEB INHALATION SCH ×2 (07:43→11:27)
[2017-07-14] MEDS: AMMONIUM LACTATE 12% CREAM 140 GM TUBE TOPICAL SCH (08:24)
[2017-07-14] MEDS: BISACODYL 5 MG TABLET.DR PO PRN (08:24)
[2017-07-14] MEDS: ENOXAPARIN 80 MG/0.8 ML SYRINGE SQ SCH (08:25)
[2017-07-14] MEDS: LISINOPRIL 2.5 MG TAB PO SCH (08:26)
[2017-07-14] MEDS: FLUTICASONE 50MCG/SPRAY NASAL 16GM EA NOSTRIL SCH (08:26)
[2017-07-14] MEDS: DOXYCYCLINE 50 MG CAP PO SCH (08:26)
[2017-07-14] MEDS: METOPROLOL SUCCINATE (ER) 50 MG TAB.ER.24H PO SCH (08:26)
[2017-07-14] MEDS: MONTELUKAST 10 MG TAB PO SCH (08:26)
[2017-07-14] MEDS: predniSONE 10 MG TAB PO SCH (08:27)
[2017-07-14] MEDS: FUROSEMIDE 40 MG TAB PO SCH (08:27)
[2017-07-14] MEDS: ASPIRIN 81 MG CHEW PO SCH (08:28)
[2017-07-14] MEDS: metFORMIN 500 MG TAB PO SCH (08:28)
[2017-07-14] MEDS: SPIRONOLACTONE 25 MG TAB PO SCH (08:28)
[2017-07-14] MEDS: ATORVASTATIN 40 MG TAB PO SCH (08:45)
[2017-07-14] MEDS: LORATADINE 10 MG TAB PO SCH (08:45)
[2017-07-14] MEDS ORDERED: SODIUM CHLORIDE 0.9% 1,000 ML IV SCH (09:00)
--- NOTE | 2017-07-14 09:44 | P.PN ---
Subjective Patient is doing well. He denies any shortness of breath is looking very comfortable no chest discomfort he was ready to go home yesterday and we had cleared him for discharge. Yesterday his sodium was 126. Today it is 123. He was started on IV fluids 150 mL an hour for this gentleman has severe LV dysfunction Afebrile 96.9F, blood pressure 120/80 mmHg heart rate in the 70s he is in atrial flutter Breath sounds are reduced bilaterally with some faint rhonchi bilaterally no crackles Heart sounds S1 and S2 are soft and irregular Abdomen soft nontender Extremities warm no edema Impression Patient admitted with congestive heart failure, systolic acute on chronic Treated and improved with significant improvement in symptoms Diuretics switched to by mouth Yesterday the sodium was 126 this morning it is 123. Receiving IV fluids now 150 mL an hour Plan I feel this gentleman can go home and we can reduce the dose of Lasix for 1 day and then restarted once again and I will see him in the office within the next 2 weeks He should go home on Lovenox for bridging along with Coumadin 5 mg by mouth daily the dose should not be increased any further since his INRs went from 1.2- 1.7 recently quickly He should continue cardio myopathy medications Continue spironolactone, continue Toprol-XL 50 mrem daily, continue lisinopril 2.5 g by mouth daily He can take Lasix 40 mg by mouth daily for 1-2 days but then increase to 40 mg twice daily since he came in with a dose of 40 mg by mouth daily and was in florid heart failure Objective - Vital Signs Vital signs: Vital Signs Temp 96.9 F L 07/14/17 04:00 Pulse 88 07/14/17 07:57 Resp 16 07/14/17 04:00 BP 120/80 07/14/17 04:00 Pulse Ox 94 L 07/14/17 07:43 Intake & Output 07/13/17 07/14/17 07/14/17 18:59 06:59 18:59 Intake Total 517 30 Balance 517 30 Weight 91.9 kg Intake: IV 30 0.9 30 Oral 517 Other: Voiding Method Toilet Toilet # Voids 1 1 - Labs CBC & Chem 7: 07/14/17 05:45 07/14/17 05:45 Labs: Abnormal Lab Results - Last 24 Hours (Table) 07/13/17 07/13/17 07/13/17 Range/Units 06:17 11:25 16:28 Hgb (13.0-17.5) gm/dL Hct (39.0-53.0) % RDW (11.5-15.5) % Lymphocytes # (1.0-4.8) k/uL PT 12.9 H (9.0-12.0) sec INR 1.3 H (<1.2) Sodium (137-145) mmol/L Chloride (98-107) mmol/L BUN (9-20) mg/dL Glucose (74-99) mg/dL POC Glucose (mg/dL) 113 H 134 H (75-99) mg/dL 07/13/17 07/14/17 07/14/17 Range/Units 20:30 05:45 05:45 Hgb 11.6 L (13.0-17.5) gm/dL Hct 35.4 L (39.0-53.0) % RDW 17.1 H (11.5-15.5) % Lymphocytes # 0.9 L (1.0-4.8) k/uL PT 16.7 H (9.0-12.0) sec INR 1.7 H (<1.2) Sodium (137-145) mmol/L Chloride (98-107) mmol/L BUN (9-20) mg/dL Glucose (74-99) mg/dL POC Glucose (mg/dL) 167 H (75-99) mg/dL 07/14/17 07/14/17 Range/Units 05:45 06:00 Hgb (13.0-17.5) gm/dL Hct (39.0-53.0) % RDW (11.5-15.5) % Lymphocytes # (1.0-4.8) k/uL PT (9.0-12.0) sec INR (<1.2) Sodium 123 L (137-145) mmol/L Chloride 84 L (98-107) mmol/L BUN 34 H (9-20) mg/dL Glucose 106 H (74-99) mg/dL POC Glucose (mg/dL) 115 H (75-99) mg/dL Microbiology - Last 24 Hours (Table) 07/10/17 17:40 Blood Culture - Preliminary Blood No Growth after 72 hours
[2017-07-14] MEDS: SYMBICORT 160-4.5 MCG INHALER INHALATION SCH (11:27)
[2017-07-14 11:42] LABS: Glucose,Whole Blood 126 mg/dL (75-99)
[2017-07-14 12:54] VITALS: BP 111/79; PULSE 100; RESP 18; TEMP 96.8
[2017-07-14 14:27] LABS: ALT 60 U/L (21-72); AST 51 U/L (17-59); Alkaline Phosphatase 157 U/L (38-126); Total Bilirubin 1.4 mg/dL (0.2-1.3); Total Protein 6.4 g/dL (6.3-8.2)
[2017-07-14] MEDS ORDERED: WARFARIN 5 MG TAB PO SCH (18:00)
--- NOTE | 2017-07-14 19:33 | P.DS ---
Providers Date of admission: 07/10/17 19:47 Attending physician: Tiera Ac Consults: 07/10/17 19:28 Consult Physician Routine Consulting Provider: Donovan Riley Consult Reason/Comments: chf, tachycardia Do you want consulting provider notified?: Yes [facility] Course: Patient is admitted to the hospital with acute exacerbation of CHF. Patient was also noted to be hyponatremic. It did improve with the diuresis. Hyponatremia was hypervolemic initially however the time of discharge patient almost appear to be intravascularly depleted Patient was only taken 49 g Lasix at home also was on a combination of hydrochlorothiazide and irbesartan On the day of discharge patient's sodium level appears to be 123. Patient stated to be feeling better and was adamant to go home discussed the risks of worsening of his sodium level did discuss the patient should hold off on taking Lasix for the next 3 days to only 40 mg hold today's dose of Lasix Patient was able to family without much difficulty Brief hospital course patient was noted to have multifactorial reasons for difficulty breathing secondary to fluid and acute exacerbation of COPD. Hyponatremia was hypervolemic appear to be stable however would likely improve with decreasing diuresis and encouraging fluid intake patient also recommended to increase taking protein supplements and holding off on hydrochlorothiazide - Exam PHYSICAL EXAMINATION: GENERAL: The patient is alert and oriented x3, not in any acute distress. Well developed, well nourished. HEENT: Pupils are round and equally reacting to light. EOMI. No scleral icterus. No conjunctival pallor. Normocephalic, atraumatic. No pharyngeal erythema. No thyromegaly. CARDIOVASCULAR: S1 and S2 present. No murmurs, rubs, or gallops. PULMONARY: Chest is clear to auscultation, minimal expiratory wheezing was still appreciated with limited air entry into bilateral lung [place]. ABDOMEN: Soft, nontender, nondistended, normoactive bowel sounds. No palpable organomegaly. MUSCULOSKELETAL: No joint swelling or deformity. EXTREMITIES: No cyanosis, clubbing, or pedal edema. NEUROLOGICAL: Gross neurological examination did not reveal any focal deficits. SKIN: No rashes. Assessment and Plan Plan: 1 Acute hypoxic respiratory failure: Improved oxygen is provided at home however on the day of discharge patient not really require oxygen with ambulation #2 cardiomyopathy etiology of cardio myopathy is not clear and patient does have chronic systolic dysfunction with acute exacerbation. #3 COPD exacerbation next line #4 hypervolemic hyponatremia: With concern for intravascular depletion decrease oral diuretics at home for the next few days is to follow-up with Dr. Riley. #5 hypertension #6 hyperlipidemia #7 benign prostatic hypertrophy #8 hypokalemia secondary to diuretic therapy patient is also on hydrochlorothiazide which significantly drop sodium and potassium more than Lasix because of which hydrochlorothiazide will be discontinued dc home james Patient Condition at Discharge: Fair Plan - Discharge Summary New Discharge Prescriptions: New Doxycycline [Vibramycin] 100 mg PO BID #10 cap Furosemide [Lasix] 40 mg PO BID@0900,1600 #60 tab Lisinopril [Zestril] 2.5 mg PO DAILY #30 tab Metoprolol Succinate (ER) [Toprol XL] 50 mg PO DAILY #30 tab Spironolactone [Aldactone] 50 mg PO DAILY #60 tab Warfarin [Coumadin] 5 mg PO DAILY@1800 #30 tab No Action Ipratropium/Albuterol Sulfate [Combivent Respimat Inhaler] 2 puff INHALATION RT-DAILY PRN PRN Reason: Shortness Of Breath Pantoprazole [Protonix] 40 mg PO DAILY Budesonide-Formot 160-4.5 Mcg [Symbicort 160-4.5 Mcg Inhaler] 2 puff INHALATION RT-BID Ipratropium [place] [Atrovent Hfa] 1 puff INHALATION RT-QID Ammonium Lactate Cream [Lac-Hydrin 12% Cream] 1 applic TOPICAL DAILY Aspirin EC [Ecotrin Low Dose] 81 mg PO DAILY metFORMIN HCL [Metformin HCl] 1,000 mg PO BID Lisinopril-Hctz 20-25 mg [Zestoretic 20-25] 1 tab PO DAILY Furosemide [Lasix] 40 mg PO DAILY Cetirizine HCl [Zyrtec] 10 mg PO DAILY Montelukast [Singulair] 10 mg PO DAILY Sildenafil Citrate [Viagra] 100 mg PO DAILY PRN PRN Reason: ERECTILE DYSFUNCTION Rosuvastatin Calcium [Crestor] 20 mg PO DAILY ALPRAZolam [Xanax] 0.5 mg PO HS PRN PRN Reason: Anxiety Nystatin 100,000Unit/gm Cream [Mycostatin Cream] 1 applic TOPICAL DAILY PRN PRN Reason: Rash Ipratropium [place] [Ipratropium [place] 0.03%] 1 sprays EA NOSTRIL BID Potassium Chloride [Klor-Con 10] 10 meq PO DAILY #5 tablet.er Fluticasone Nasal Normal [Flonase Nasal Normal] 1 spray EA NOSTRIL DAILY Albuterol Nebulized [Ventolin Nebulized] 2.5 mg INHALATION RT-QID PRN PRN Reason: Shortness Of Breath Discharge Medication List ALPRAZolam [Xanax] 0.5 mg PO HS PRN 04/22/17 [History] Ammonium Lactate Cream [Lac-Hydrin 12% Cream] 1 applic TOPICAL DAILY 04/22/17 [ History] Aspirin EC [Ecotrin Low Dose] 81 mg PO DAILY 04/22/17 [History] Budesonide-Formot 160-4.5 Mcg [Symbicort 160-4.5 Mcg Inhaler] 2 puff INHALATION RT-BID 04/22/17 [History] Cetirizine HCl [Zyrtec] 10 mg PO DAILY 04/22/17 [History] Furosemide [Lasix] 40 mg PO DAILY 04/22/17 [History] Ipratropium [place] [Atrovent Hfa] 1 puff INHALATION RT-QID 04/22/17 [History] Ipratropium [place] [Ipratropium [place] 0.03%] 1 sprays EA NOSTRIL BID [History] Ipratropium/Albuterol Sulfate [Combivent Respimat Inhaler] 2 puff INHALATION RT- DAILY PRN 04/22/17 [History] Lisinopril-Hctz 20-25 mg [Zestoretic 20-25] 1 tab PO DAILY 04/22/17 [History] Montelukast [Singulair] 10 mg PO DAILY 04/22/17 [History] Nystatin 100,000Unit/gm Cream [Mycostatin Cream] 1 applic TOPICAL DAILY PRN 09/28 [History] Pantoprazole [Protonix] 40 mg PO DAILY 04/22/17 [History] Potassium Chloride [Klor-Con 10] 10 meq PO DAILY #5 tablet.er 04/22/17 [Rx] Rosuvastatin Calcium [Crestor] 20 mg PO DAILY 04/22/17 [History] Sildenafil Citrate [Viagra] 100 mg PO DAILY PRN 04/22/17 [History] metFORMIN HCL [Metformin HCl] 1,000 mg PO BID 04/22/17 [History] Albuterol Nebulized [Ventolin Nebulized] 2.5 mg INHALATION RT-QID PRN 07/10/17 [ History] Fluticasone Nasal Normal [Flonase Nasal Normal] 1 spray EA NOSTRIL DAILY 07/10/17 [History] Doxycycline [Vibramycin] 100 mg PO BID #10 cap 07/13/17 [Rx] Furosemide [Lasix] 40 mg PO BID@0900,1600 #60 tab 07/13/17 [Rx] Lisinopril [Zestril] 2.5 mg PO DAILY #30 tab 07/13/17 [Rx] Metoprolol Succinate (ER) [Toprol XL] 50 mg PO DAILY #30 tab 07/13/17 [Rx] Spironolactone [Aldactone] 50 mg PO DAILY #60 tab 07/13/17 [Rx] Warfarin [Coumadin] 5 mg PO DAILY@1800 #30 tab 07/14/17 [Rx] Follow up Appointment(s)/Referral(s): Hari Greer DO [Primary Care Provider] - 3 Days Ambulatory/Diagnostic Orders: Prothrombin Time INR [LAB.AMB] Time Frame: 07/17/17, Location: Determined By Patient Patient Instructions/Handouts: Atrial Flutter (DC), COPD (Chronic Obstructive Pulmonary Disease) (DC) Activity/Diet/Wound Care/Special Instructions: Anticoagulation as per cardiology. confirm cardiology F/U apt. prior to dc DIet: Cardiac, OCTAVIANO, "CHF Diet activity: limited TIll F/U referral sent to [facility] home care- i also called DC psychometric examiner Annetta and left message that you needed home care. please follow up with her to make sure it get ordered through that DC - Ext: [phone] Discharge Disposition: HOME WITH HOME HEALTH SERVICES
== END 2017-07-14 13:18 | disposition home health service (06) | DRG 291 ==
LOC: EC 16:17 → 6SEL 19:47
PROVIDERS: ADMIT Internal Medicine; ATTEND Internal Medicine
DX: I11.0 Hypertensive heart disease with heart failure (principal); J96.01 Acute respiratory failure with hypoxia; E87.1 Hypo-osmolality and hyponatremia; I48.92 Unspecified atrial flutter; J44.1 Chronic obstructive pulmonary disease with (acute) exacerbation; E86.1 Hypovolemia; I42.9 Cardiomyopathy, unspecified; E11.9 Type 2 diabetes mellitus without complications; D64.9 Anemia, unspecified; E78.5 Hyperlipidemia, unspecified; E87.6 Hypokalemia; H54.8 Legal blindness, as defined in USA; H91.90 Unspecified hearing loss, unspecified ear; I08.1 Rheumatic disorders of both mitral and tricuspid valves; I45.10 Unspecified right bundle-branch block; I50.23 Acute on chronic systolic (congestive) heart failure; N40.0 Benign prostatic hyperplasia without lower urinary tract symptoms; T50.2X5A Adverse effect of carbonic-anhydrase inhibitors, benzothiadiazides and other diuretics, initial encounter; Z79.82 Long term (current) use of aspirin; Z79.899 Other long term (current) drug therapy; Z79.84 Long term (current) use of oral hypoglycemic drugs; Z87.891 Personal history of nicotine dependence; Z88.1 Allergy status to other antibiotic agents
CPT/HCPCS: 36415; 71020; 80048; 80053; 82550; 82553; 83036; 83880; 84295; 84443; 84484; 85025; 85610; 85730; 87040; 93005; 93306; 94640; 94760; 96374; 96375; 99285

== ENCOUNTER 2017-07-19 15:18 | Emergency (ER) | payer MEDICARE, OTHER ==
--- NOTE | 2017-07-19 16:26 | ED ---
General Adult HPI - General Chief complaint: Recheck/Abnormal Lab/Rx Stated complaint: coumadin level 13 Time Seen by Provider: 07/19/17 16:04 Source: patient Mode of arrival: ambulatory Limitations: no limitations - History of Present Illness Initial comments: Patient is a 77-year-old male with extensive past medical history who presents to the emergency department after his outside labs revealed an INR of 13. Patient reports that he was turning on Coumadin last week after being hospitalized. The patient is unsure what his doses with indication for Coumadin his. He states that his been taking his pills as prescribed and that today a home health care worker came to his home to check his INR. He reports that she was unable to obtain a value on her [id number] machine and instead took a blood sample. He reports he was later called by the [facility] advised to go to the nearest emergency department for treatment of INR of 13. Patient does report that he has bruising on his abdomen, this began while he is hospitalized due to injections he was receiving. He also reports having a mild bloody nose a couple of days ago but no bleeding today. He denies any bleeding from the gums, hematuria or blood in his stool. - Related Data Home Medications Medication Instructions Recorded Confirmed ALPRAZolam [Xanax] 0.5 mg PO HS PRN 04/22/17 07/19/17 Ammonium Lactate Cream [Lac-Hydrin 1 applic TOPICAL DAILY 04/22/17 07/19/17 12% Cream] Aspirin EC [Ecotrin Low Dose] 81 mg PO DAILY 04/22/17 07/19/17 Budesonide-Formot 160-4.5 Mcg 2 puff INHALATION RT-BID 04/22/17 07/19/17 [Symbicort 160-4.5 Mcg Inhaler] Cetirizine HCl [Zyrtec] 10 mg PO DAILY 04/22/17 07/19/17 Furosemide [Lasix] 40 mg PO DAILY 04/22/17 07/19/17 Ipratropium [place] [Atrovent Hfa] 1 puff INHALATION RT-QID 04/22/17 07/19/17 Ipratropium [place] [Ipratropium 1 sprays EA NOSTRIL BID 04/22/17 07/19/17 [place] 0.03%] Ipratropium/Albuterol Sulfate 2 puff INHALATION RT-DAILY PRN 04/22/17 07/19/17 [Combivent Respimat Inhaler] Lisinopril-Hctz 20-25 mg 1 tab PO DAILY 04/22/17 07/19/17 [Zestoretic 20-25] Montelukast [Singulair] 10 mg PO DAILY 04/22/17 07/19/17 Nystatin 100,000Unit/gm Cream 1 applic TOPICAL DAILY PRN 04/22/17 07/19/17 [Mycostatin Cream] Pantoprazole [Protonix] 40 mg PO DAILY 04/22/17 07/19/17 Rosuvastatin Calcium [Crestor] 20 mg PO DAILY 04/22/17 07/19/17 Sildenafil Citrate [Viagra] 100 mg PO DAILY PRN 04/22/17 07/19/17 metFORMIN HCL [Metformin HCl] 1,000 mg PO BID 04/22/17 07/19/17 Albuterol Nebulized [Ventolin 2.5 mg INHALATION RT-QID PRN 07/10/17 07/19/17 Nebulized] Fluticasone Nasal [place] [Flonase 1 spray EA NOSTRIL DAILY 07/10/17 07/19/17 Nasal [place]] Previous Rx's Medication Instructions Recorded Potassium Chloride [Klor-Con 10] 10 meq PO DAILY #5 tablet.er 04/22/17 Doxycycline [Vibramycin] 100 mg PO BID #10 cap 07/13/17 Furosemide [Lasix] 40 mg PO BID@0900,1600 #60 tab 07/13/17 Lisinopril [Zestril] 2.5 mg PO DAILY #30 tab 07/13/17 Metoprolol Succinate (ER) [Toprol 50 mg PO DAILY #30 tab 07/13/17 XL] Spironolactone [Aldactone] 50 mg PO DAILY #60 tab 07/13/17 Allergies Allergy/AdvReac Type Severity Reaction Status Date / Time cefaclor [From [facility]] Allergy Unknown Verified 07/19/17 16:15 Review of Systems ROS Statement: Those systems with pertinent positive or pertinent negative responses have been documented in the HPI. ROS Other: All systems not noted in ROS Statement are negative. Constitutional: Denies: fever Eyes: Denies: vision change (legally blind) ENT: Reports: throat pain (sore throat x2 days) Respiratory: Reports: wheezes (chronic asthma, unchanged) Cardiovascular: Denies: chest pain, palpitations Endocrine: Denies: fatigue Gastrointestinal: Reports: constipation. Denies: abdominal pain, nausea, vomiting, diarrhea, melena, hematochezia Genitourinary: Denies: urgency, hematuria Musculoskeletal: Denies: back pain Skin: Reports: change in color (bruising in bilateral arms, abdomen) Neurological: Denies: headache Hematological/Lymphatic: Reports: easy bleeding, easy bruising Past Medical History Past Medical History: Asthma, COPD, Diabetes Mellitus, Hypertension Additional Past Medical History / Comment(s): chronic bronchitis, legally blind , hard of hearing History of Any Multi-Drug Resistant Organisms: None Reported Additional Past Surgical History / Comment(s): shrapnel removal Past Psychological History: No Psychological Hx Reported Smoking Status: Former smoker Past Alcohol Use History: None Reported Past Drug Use History: None Reported General Exam Limitations: no limitations General appearance: alert, in no apparent distress Head exam: Present: atraumatic, normocephalic, normal inspection Eye exam: Present: normal appearance, PERRL, EOMI. Absent: scleral icterus, conjunctival injection, periorbital swelling ENT exam: Present: normal exam, mucous membranes moist, other (endentulous, no bleeding gums or tongue, no posterior oropharyngeal injection) Neck exam: Present: normal inspection. Absent: tenderness, meningismus, lymphadenopathy Respiratory exam: Present: normal lung sounds bilaterally. Absent: respiratory distress, wheezes, rales, rhonchi, stridor Cardiovascular Exam: Present: regular rate, normal rhythm, normal heart sounds. Absent: systolic murmur, diastolic murmur, rubs, gallop, clicks GI/Abdominal exam: Present: soft, normal bowel sounds, other (abdominal wall bruising from level of umbilicus to pubis across entire abdomen, consistent with lovenox injections and elevated INR). Absent: distended, tenderness, guarding, rebound, rigid Rectal exam: Present: deferred Extremities exam: Present: full ROM, other (multiple bruises on bilateral arms, different stages of healing, consistent with recent hospitalization and IV placement ) Back exam: Present: normal inspection Neurological exam: Present: alert, oriented X3 Psychiatric exam: Present: normal affect, normal mood Skin exam: Present: warm, dry, intact, other (bruising as noted above). Absent : rash Course Vital Signs 07/19/17 07/19/17 07/19/17 15:52 17:45 21:31 Temperature 96.9 F L 97.9 F Pulse Rate 86 80 95 Respiratory 18 20 18 Rate Blood Pressure 112/69 110/56 128/70 O2 Sat by Pulse 99 99 98 Oximetry 07/19/17 22:51 Temperature 97.4 F L Pulse Rate 99 Respiratory 19 Rate Blood Pressure 128/70 O2 Sat by Pulse 98 Oximetry Medical Decision Making - Medical Decision Making Patient was seen and evaluated, vital signs were reviewed History was obtained from the patient and review of medical record Labs are ordered to confirm the outpatient INR greater than 13 Patient with no active bleeding upon initial evaluation however does have bruising on his abdomen and bilateral extremities. I do have a high suspicion for a supratherapeutic INR. I am reveals mild conjunctival pallor however I do not suspect that the patient will require blood transfusion. Labs with mild decrease in Hgb Transaminases elevated, patient without abdominal pain Coags did not result, due to being outside range - repeat labs drawn INR > 10 PTT >130 10mg IV Vitamin K ordered Patient care was discussed with Rhoda FERNANDEZ for Dr Ge. Significant abnormal labs were discussed with her. I advised her that I treated the patient with 10 mg of IV vitamin K. I advised her that I feel the patient is not a good candidate for Coumadin as he does not seem to manage his medications well. I discussed with her the possibility that he may require a NOAC for anticoagulation. Also advised the patient has elevated transaminases of unknown cause. She accepts the admission to Dr. Ge. 10:35 PM I was called to the patient's room. Patient requesting to be discharged at this time. The patient states that he was in the hospital for over a week and that he doesn't want to be admitted again. I advised the patient the repeat PT and INR have not yet resulted in addition I feel he needs to be admitted for his elevated transaminase levels. The patient expressed understanding that he had abnormal liver labs and that his blood was very thin but he insisted to be discharged home. I discussed with the patient that with an INR this elevated he is at high risk for spontaneous bleeding that could potentially be fatal. The patient expressed understanding of this and insisted that he would call 911 should he start bleeding. I advised the patient that even minimal trauma to his head could result in bleeding within the brain and the even without trauma to the head he could develop spontaneous bleeding in the brain. Patient stated again that he understood this and he would call 911 if he had any head trauma or developed a headache. I advised the patient and I am unsure of the cause of his elevated transaminase levels I feel he needs to be admitted into the hospital for further evaluation, patient expressed understanding that his liver labs were abnormal and states that he has no history of liver problems and he thinks it's related to the medication and he was just stopped taking it. I advised the patient that he needs to see his primary care physician tomorrow to follow up on these labs and to discuss alternative anticoagulant medication. I advised the patient not to take his Coumadin when he goes home tonight. Patient expressed understanding of this plan. Patient signed the AMA form with the nurse witness in the room. Patient was discharged home AGAINST MEDICAL ADVICE - Lab Data Result diagrams: 07/19/17 16:30 07/19/17 16:30 Lab Results 07/19/17 07/19/17 07/19/17 Range/Units 16:30 16:30 16:30 WBC 11.9 H (3.8-10.6) k/uL RBC 4.67 (4.30-5.90) m/uL Hgb 12.4 L (13.0-17.5) gm/dL Hct 38.5 L (39.0-53.0) % MCV 82.4 (80.0-100.0) fL MCH 26.6 (25.0-35.0) pg MCHC 32.3 (31.0-37.0) g/dL RDW 18.0 H (11.5-15.5) % Plt Count 267 (150-450) k/uL Neutrophils % 78 % Lymphocytes % 11 % Monocytes % 6 % Eosinophils % 1 % Basophils % 0 % Neutrophils # 9.2 H (1.3-7.7) k/uL Lymphocytes # 1.3 (1.0-4.8) k/uL Monocytes # 0.7 (0-1.0) k/uL Eosinophils # 0.1 (0-0.7) k/uL Basophils # 0.0 (0-0.2) k/uL Hypochromasia Slight Anisocytosis Slight PT (9.0-12.0) sec INR (<1.2) APTT (22.0-30.0) sec Sodium 124 L (137-145) mmol/L Potassium 4.9 (3.5-5.1) mmol/L Chloride 90 L (98-107) mmol/L Carbon Dioxide 26 (22-30) mmol/L Anion Gap 8 mmol/L BUN 24 H (9-20) mg/dL Creatinine 0.80 (0.66-1.25) mg/dL Est GFR (MDRD) Af Amer >60 (>60 ml/min/1.73 sqM) Est GFR (MDRD) Non-Af >60 (>60 ml/min/1.73 sqM) Glucose 98 (74-99) mg/dL Calcium 8.7 (8.4-10.2) mg/dL Total Bilirubin 1.9 H (0.2-1.3) mg/dL AST 151 H (17-59) U/L ALT 214 H (21-72) U/L Alkaline Phosphatase 181 H (38-126) U/L Total Protein 6.8 (6.3-8.2) g/dL Albumin 4.1 (3.5-5.0) g/dL Blood Type A Positive Blood Type Confirm Blood Type Recheck CABO Indicated Antibody Screen NEGATIVE Spec Expiration Date 07/22/2017232907/19/17 07/19/17 Range/Units 17:18 17:40 WBC (3.8-10.6) k/uL RBC (4.30-5.90) m/uL Hgb (13.0-17.5) gm/dL Hct (39.0-53.0) % MCV (80.0-100.0) fL MCH (25.0-35.0) pg MCHC (31.0-37.0) g/dL RDW (11.5-15.5) % Plt Count (150-450) k/uL Neutrophils % % Lymphocytes % % Monocytes % % Eosinophils % % Basophils % % Neutrophils # (1.3-7.7) k/uL Lymphocytes # (1.0-4.8) k/uL Monocytes # (0-1.0) k/uL Eosinophils # (0-0.7) k/uL Basophils # (0-0.2) k/uL Hypochromasia Anisocytosis PT >130.0 H (9.0-12.0) sec INR >10.0 H* (<1.2) APTT 37.8 H (22.0-30.0) sec Sodium (137-145) mmol/L Potassium (3.5-5.1) mmol/L Chloride (98-107) mmol/L Carbon Dioxide (22-30) mmol/L Anion Gap mmol/L BUN (9-20) mg/dL Creatinine (0.66-1.25) mg/dL Est GFR (MDRD) Af Amer (>60 ml/min/1.73 sqM) Est GFR (MDRD) Non-Af (>60 ml/min/1.73 sqM) Glucose (74-99) mg/dL Calcium (8.4-10.2) mg/dL Total Bilirubin (0.2-1.3) mg/dL AST (17-59) U/L ALT (21-72) U/L Alkaline Phosphatase (38-126) U/L Total Protein (6.3-8.2) g/dL Albumin (3.5-5.0) g/dL Blood Type Blood Type Confirm A Positive Blood Type Recheck Antibody Screen Spec Expiration Date Disposition Clinical Impression: Supratherapeutic international normalized ratio (INR), Elevated transaminase level Disposition: Left Against Medical Advice Condition: Serious Instructions: Elevated INR (ED) Referrals: Hari Greer DO [Primary Care Provider] - 1-2 days Time of Disposition: 22:41 Decision Time: 18:39
[2017-07-19 16:46] LABS: Anisocytosis Slight; Basophils % (A) 0 %; CH 26.3; CHCM 32.1; Eosinophils # (A) 0.1 k/uL (0-0.7); Eosinophils % (A) 1 %; HCT 38.5 % (39.0-53.0); HGB 12.4 gm/dL (13.0-17.5); Hypochromasia Slight; Luc # (Auto) 0.51; Luc % (Auto) 4; Lymphocytes # (A) 1.3 k/uL (1.0-4.8); Lymphocytes % (A) 11 %; MCH 26.6 pg (25.0-35.0); MCHC 32.3 g/dL (31.0-37.0); MCV 82.4 fL (80.0-100.0); Mean Platelet Volume 7.5; Monocytes # (A) 0.7 k/uL (0-1.0); Monocytes % (A) 6 %; Neutrophils # (A) 9.2 k/uL (1.3-7.7); Neutrophils % (A) 78 %; RBC 4.67 m/uL (4.30-5.90); WBC 11.9 k/uL (3.8-10.6); WBC (Perox) 11.73
[2017-07-19 16:56] LABS: ALT 214 U/L (21-72); AST 151 U/L (17-59); Alkaline Phosphatase 181 U/L (38-126); Anion Gap 8 mmol/L; Blood Urea Nitrogen 24 mg/dL (9-20); Calcium 8.7 mg/dL (8.4-10.2); Carbon Dioxide 26 mmol/L (22-30); Chloride 90 mmol/L (98-107); Glucose 98 mg/dL (74-99); Non-African American GFR(MDRD) >60 (>60 ml/min/1.73 sqM); Potassium 4.9 mmol/L (3.5-5.1); Sodium 124 mmol/L (137-145); Total Bilirubin 1.9 mg/dL (0.2-1.3); Total Protein 6.8 g/dL (6.3-8.2)
[2017-07-19 18:02] LABS: Partial Thromboplastin Time 37.8 sec (22.0-30.0)
[2017-07-19 18:16] LABS: Prothrombin Time >130.0 sec (9.0-12.0)
[2017-07-19] MEDS ORDERED: PHYTONADIONE 10 MG in SODIUM CHLORIDE 0.9% 50 ML IVPB STA (18:18)
[2017-07-19 18:20] LABS: INR >10.0 (<1.2)
[2017-07-19] MEDS ORDERED: NALOXONE 0.4 MG/ML 1 ML VIAL IV PRN (18:40)
[2017-07-19 21:32] VITALS: BP 128/70
[2017-07-19 22:36] LABS: INR 4.8 (<1.2); Partial Thromboplastin Time 34.3 sec (22.0-30.0)
[2017-07-19 22:52] VITALS: PULSE 99; RESP 19; TEMP 97.4
== END 2017-07-19 22:52 | disposition left against medical advice (07) ==
LOC: EC 15:18
DX: R79.1 Abnormal coagulation profile (principal); R74.0 Nonspecific elevation of levels of transaminase and lactic acid dehydrogenase [LDH]; S40.022A Contusion of left upper arm, initial encounter; S40.021A Contusion of right upper arm, initial encounter; S80.12XA Contusion of left lower leg, initial encounter; S80.11XA Contusion of right lower leg, initial encounter; J44.9 Chronic obstructive pulmonary disease, unspecified; J45.909 Unspecified asthma, uncomplicated; E11.9 Type 2 diabetes mellitus without complications; I10 Essential (primary) hypertension; Z79.51 Long term (current) use of inhaled steroids; Z79.52 Long term (current) use of systemic steroids; Z87.891 Personal history of nicotine dependence; Z79.82 Long term (current) use of aspirin; Z79.84 Long term (current) use of oral hypoglycemic drugs; Z79.899 Other long term (current) drug therapy; Z88.1 Allergy status to other antibiotic agents; Z53.29 Procedure and treatment not carried out because of patient's decision for other reasons
CPT/HCPCS: 99284; 96365; 36415; 86900; 86901; 80053; 85025; 85610; 85730; 86850; J3430

== ENCOUNTER 2017-07-21 14:01 | Emergency (ER) | payer MEDICARE, OTHER ==
[2017-07-21 14:08] VITALS: RESP 20; TEMP 98.5
--- NOTE | 2017-07-21 14:46 | ED ---
Extremity Problem HPI <CesarIvan - Last Filed: 07/21/17 17:29> - General Source: patient, RN notes reviewed Mode of arrival: wheelchair Limitations: no limitations <Savannah Welch - Last Filed: 07/21/17 18:13> - General Chief complaint: Extremity Problem,Nontraumatic Stated complaint: Swollen feet Time Seen by Provider: 07/21/17 14:17 - History of Present Illness Initial comments: Patient is a 77-year-old male presents to the emergency room for evaluation of bilateral ankle edema. Patient was recently started on Coumadin. Patient states he was here 2 days ago for elevated INR level. Patient states he was given vitamin K and sent home and advised to stop his Coumadin Patient states he woke up this morning with his b/l ankles swollen. Patient does state he takes a water pill daily. Patient states this has never happened to him before. Patient denies any redness in his ankles. Patient denies calf pain. Patient denies any pain while walking. Patient states it just feels uncomfortable. Patient denies numbness or tingling in his toes. Patient states he has a history of asthma but denies any worsening shortness of breath. Patient denies history of DVTs or PEs. Patient denies headache or dizziness. Patient denies chest pain. (Savannah Welch) - Related Data Home Medications Medication Instructions Recorded Confirmed ALPRAZolam [Xanax] 0.5 mg PO HS PRN 04/22/17 07/21/17 Ammonium Lactate Cream [Lac-Hydrin 1 applic TOPICAL DAILY 04/22/17 07/21/17 12% Cream] Aspirin EC [Ecotrin Low Dose] 81 mg PO DAILY 04/22/17 07/21/17 Budesonide-Formot 160-4.5 Mcg 2 puff INHALATION RT-BID 04/22/17 07/21/17 [Symbicort 160-4.5 Mcg Inhaler] Cetirizine HCl [Zyrtec] 10 mg PO DAILY 04/22/17 07/21/17 Furosemide [Lasix] 40 mg PO DAILY 04/22/17 07/21/17 Ipratropium Naselle [Atrovent Hfa] 1 puff INHALATION RT-QID PRN 04/22/17 Lisinopril-Hctz 20-25 mg 1 tab PO DAILY 04/22/17 07/21/17 [Zestoretic 20-25] Montelukast [Singulair] 10 mg PO DAILY 04/22/17 07/21/17 Nystatin 100,000Unit/gm Cream 1 applic TOPICAL DAILY PRN 04/22/17 07/21/17 [Mycostatin Cream] Pantoprazole [Protonix] 40 mg PO DAILY 04/22/17 07/21/17 Rosuvastatin Calcium [Crestor] 20 mg PO DAILY 04/22/17 07/21/17 Sildenafil Citrate [Viagra] 100 mg PO DAILY PRN 04/22/17 07/21/17 metFORMIN HCL [Metformin HCl] 1,000 mg PO BID 04/22/17 07/21/17 Albuterol Nebulized [Ventolin 2.5 mg INHALATION RT-QID PRN 07/10/17 07/21/17 Nebulized] Fluticasone Nasal [place] [Flonase 1 spray EA NOSTRIL DAILY 07/10/17 07/21/17 Nasal [place]] Previous Rx's Medication Instructions Recorded Potassium Chloride [Klor-Con 10] 10 meq PO DAILY #5 tablet.er 04/22/17 Lisinopril [Zestril] 2.5 mg PO DAILY #30 tab 07/13/17 Metoprolol Succinate (ER) [Toprol 50 mg PO DAILY #30 tab 07/13/17 XL] Spironolactone [Aldactone] 50 mg PO DAILY #60 tab 07/13/17 Allergies Allergy/AdvReac Type Severity Reaction Status Date / Time cefaclor [From [facility]] Allergy Unknown Verified 07/21/17 14:05 Review of Systems ROS Other: All systems not noted in ROS Statement are negative. <Ivan Guerrero - Last Filed: 07/21/17 17:29> ROS Other: All systems not noted in ROS Statement are negative. <Savannah Welch - Last Filed: 07/21/17 18:13> ROS Statement: Those systems with pertinent positive or pertinent negative responses have been documented in the HPI. Past Medical History Past Medical History: Asthma, COPD, Diabetes Mellitus, Hypertension Additional Past Medical History / Comment(s): chronic bronchitis, legally blind , hard of hearing History of Any Multi-Drug Resistant Organisms: None Reported Additional Past Surgical History / Comment(s): shrapnel removal Past Psychological History: No Psychological Hx Reported Smoking Status: Former smoker Past Alcohol Use History: None Reported Past Drug Use History: None Reported <Savannah Welch - Last Filed: 07/21/17 18:13> General Exam <Ivan Guerrero - Last Filed: 07/21/17 17:29> Limitations: no limitations General appearance: alert, in no apparent distress Head exam: Present: atraumatic, normocephalic, normal inspection Eye exam: Present: normal appearance ENT exam: Present: normal exam Neck exam: Present: normal inspection Respiratory exam: Present: normal lung sounds bilaterally. Absent: respiratory distress Cardiovascular Exam: Present: regular rate, normal rhythm, normal heart sounds Extremities exam: Present: full ROM, pedal edema (Bilateral pitting pedal and ankle edema). Absent: tenderness, calf tenderness Back exam: Present: normal inspection Neurological exam: Present: alert, oriented X3, CN II-XII intact, normal gait Psychiatric exam: Present: normal affect, normal mood Skin exam: Present: warm, dry, intact, normal color. Absent: rash <Savannah Welch - Last Filed: 07/21/17 18:13> - General Exam Comments Initial Comments: Laying in exam room, no acute distress. (Savannah Welch) Medical Decision Making - Lab Data Result diagrams: 07/21/17 15:00 07/21/17 15:00 <Ivan Guerrero - Last Filed: 07/21/17 17:29> - Lab Data Result diagrams: 07/21/17 15:00 07/21/17 15:00 - Radiology Data Radiology results: report reviewed, image reviewed <Savannah Welch - Last Filed: 07/21/17 18:13> - Medical Decision Making Medical decision-making. The patient's alert and oriented. He rates a complaint of mildly swollen ankles but significantly better now than it was earlier per patient. He is on Lasix. His BNP was 8000. The chest x-ray did not show overt failure. Lungs were essentially clear to auscultation. He has chronic heart disease. Patient does not want to stay. He states will increase his Lasix she does have appointment to follow[facility] in several days. He was told if he develops any shortness breath return emergency room. Patient denies chest pain. No evidence of any swelling to the calves. No evidence of DVT. Dr. Guerrero (Ivan Guerrero) - Lab Data Lab Results 07/21/17 07/21/17 07/21/17 Range/Units 15:00 15:00 15:00 WBC 11.2 H (3.8-10.6) k/uL RBC 4.51 (4.30-5.90) m/uL Hgb 12.0 L (13.0-17.5) gm/dL Hct 37.3 L (39.0-53.0) % MCV 82.6 (80.0-100.0) fL MCH 26.6 (25.0-35.0) pg MCHC 32.1 (31.0-37.0) g/dL RDW 18.8 H (11.5-15.5) % Plt Count 236 (150-450) k/uL Neutrophils % 78 % Lymphocytes % 11 % Monocytes % 7 % Eosinophils % 1 % Basophils % 0 % Neutrophils # 8.7 H (1.3-7.7) k/uL Lymphocytes # 1.2 (1.0-4.8) k/uL Monocytes # 0.8 (0-1.0) k/uL Eosinophils # 0.1 (0-0.7) k/uL Basophils # 0.0 (0-0.2) k/uL Anisocytosis Slight Microcytosis Slight PT (9.0-12.0) sec INR (<1.2) APTT (22.0-30.0) sec D-Dimer (<0.60) mg/L FEU Sodium 128 L (137-145) mmol/L Potassium 4.4 (3.5-5.1) mmol/L Chloride 91 L (98-107) mmol/L Carbon Dioxide 25 (22-30) mmol/L Anion Gap 12 mmol/L BUN 20 (9-20) mg/dL Creatinine 0.93 (0.66-1.25) mg/dL Est GFR (MDRD) Af Amer >60 (>60 ml/min/1.73 sqM) Est GFR (MDRD) Non-Af >60 (>60 ml/min/1.73 sqM) Glucose 91 (74-99) mg/dL Calcium 8.7 (8.4-10.2) mg/dL Magnesium 1.8 (1.6-2.3) mg/dL Total Bilirubin 2.5 H (0.2-1.3) mg/dL AST 94 H (17-59) U/L ALT 157 H (21-72) U/L Alkaline Phosphatase 177 H (38-126) U/L Total Creatine Kinase 270 H (55-170) U/L CK-MB (CK-2) 5.5 H* (0.0-2.4) ng/mL CK-MB (CK-2) Rel Index 2.0 Troponin I <0.012 (0.000-0.034) ng/mL NT-Pro-B Natriuret Pep pg/mL Total Protein 6.7 (6.3-8.2) g/dL Albumin 4.0 (3.5-5.0) g/dL 07/21/17 07/21/17 Range/Units 15:00 15:00 WBC (3.8-10.6) k/uL RBC (4.30-5.90) m/uL Hgb (13.0-17.5) gm/dL Hct (39.0-53.0) % MCV (80.0-100.0) fL MCH (25.0-35.0) pg MCHC (31.0-37.0) g/dL RDW (11.5-15.5) % Plt Count (150-450) k/uL Neutrophils % % Lymphocytes % % Monocytes % % Eosinophils % % Basophils % % Neutrophils # (1.3-7.7) k/uL Lymphocytes # (1.0-4.8) k/uL Monocytes # (0-1.0) k/uL Eosinophils # (0-0.7) k/uL Basophils # (0-0.2) k/uL Anisocytosis Microcytosis PT 20.6 H (9.0-12.0) sec INR 2.1 H (<1.2) APTT 28.9 (22.0-30.0) sec D-Dimer 0.58 (<0.60) mg/L FEU Sodium (137-145) mmol/L Potassium (3.5-5.1) mmol/L Chloride (98-107) mmol/L Carbon Dioxide (22-30) mmol/L Anion Gap mmol/L BUN (9-20) mg/dL Creatinine (0.66-1.25) mg/dL Est GFR (MDRD) Af Amer (>60 ml/min/1.73 sqM) Est GFR (MDRD) Non-Af (>60 ml/min/1.73 sqM) Glucose (74-99) mg/dL Calcium (8.4-10.2) mg/dL Magnesium (1.6-2.3) mg/dL Total Bilirubin (0.2-1.3) mg/dL AST (17-59) U/L ALT (21-72) U/L Alkaline Phosphatase (38-126) U/L Total Creatine Kinase (55-170) U/L CK-MB (CK-2) (0.0-2.4) ng/mL CK-MB (CK-2) Rel Index Troponin I (0.000-0.034) ng/mL NT-Pro-B Natriuret Pep 8070 pg/mL Total Protein (6.3-8.2) g/dL Albumin (3.5-5.0) g/dL 07/21/17 18:12 Ventricular rate 86 bpm, NE interval 192 ms, QRS duration 160 ms, QT/QTc with a 432/516 ms (Savannah Welch) Disposition <Ivan Guerrero - Last Filed: 07/21/17 17:29> Time of Disposition: 17:33 <Savannah Welch - Last Filed: 07/21/17 18:13> Clinical Impression: Bilateral leg edema Disposition: HOME SELF-CARE Condition: Good Instructions: Leg Edema (ED) Additional Instructions: Please follow-up with primary care provider next week. If any new symptom arises or symptoms worsen, return to ER as soon as possible. Referrals: Hari Greer DO [Primary Care Provider] - 1-2 days
[2017-07-21 15:13] LABS: Anisocytosis Slight; Basophils % (A) 0 %; CH 26.7; CHCM 32.6; Eosinophils # (A) 0.1 k/uL (0-0.7); Eosinophils % (A) 1 %; HCT 37.3 % (39.0-53.0); HDW 2.93; Luc # (Auto) 0.41; Luc % (Auto) 4; Lymphocytes # (A) 1.2 k/uL (1.0-4.8); Lymphocytes % (A) 11 %; MCH 26.6 pg (25.0-35.0); MCHC 32.1 g/dL (31.0-37.0); MCV 82.6 fL (80.0-100.0); Mean Platelet Volume 8.6; Microcytosis Slight; Monocytes # (A) 0.8 k/uL (0-1.0); Monocytes % (A) 7 %; Neutrophils # (A) 8.7 k/uL (1.3-7.7); Neutrophils % (A) 78 %; RBC 4.51 m/uL (4.30-5.90); RDW 18.8 % (11.5-15.5); WBC 11.2 k/uL (3.8-10.6); WBC (Perox) 11.26
[2017-07-21 15:25] LABS: ALT 157 U/L (21-72); AST 94 U/L (17-59); Alkaline Phosphatase 177 U/L (38-126); Anion Gap 12 mmol/L; Blood Urea Nitrogen 20 mg/dL (9-20); Calcium 8.7 mg/dL (8.4-10.2); Carbon Dioxide 25 mmol/L (22-30); Chloride 91 mmol/L (98-107); Glucose 91 mg/dL (74-99); Magnesium 1.8 mg/dL (1.6-2.3); Non-African American GFR(MDRD) >60 (>60 ml/min/1.73 sqM); Potassium 4.4 mmol/L (3.5-5.1); Sodium 128 mmol/L (137-145); Total Bilirubin 2.5 mg/dL (0.2-1.3); Total Protein 6.7 g/dL (6.3-8.2)
[2017-07-21 15:26] LABS: INR 2.1 (<1.2); Partial Thromboplastin Time 28.9 sec (22.0-30.0); Prothrombin Time 20.6 sec (9.0-12.0)
[2017-07-21 15:39] LABS: Creatine Kinase 270 U/L (55-170)
[2017-07-21 15:50] LABS: Troponin I <0.012 ng/mL (0.000-0.034)
[2017-07-21 15:53] LABS: Creatine Kinase MB 5.5 ng/mL (0.0-2.4)
--- NOTE | 2017-07-21 16:37 | XR ---
EXAMINATION TYPE: XR chest 2V DATE OF EXAM: 07/21/2017 COMPARISON: Prior chest x-ray 07/10/2017 HISTORY: Chest pain TECHNIQUE: Frontal and lateral views of the chest are obtained. FINDINGS: There is no focal air space opacity, pleural effusion, or pneumothorax seen. The cardiac silhouette size is stable accounting for rotation, apical lordotic technique. There are overlying ca rdiac leads. The osseous structures are intact. IMPRESSION: No acute cardiopulmonary process. Mild cardiomegaly.
[2017-07-21 17:10] VITALS: BP 176/91; PULSE 98
== END 2017-07-21 17:55 | disposition home or self-care (01) ==
LOC: EC 14:01
DX: R60.0 Localized edema (principal); J45.909 Unspecified asthma, uncomplicated; J44.1 Chronic obstructive pulmonary disease with (acute) exacerbation; E11.9 Type 2 diabetes mellitus without complications; I10 Essential (primary) hypertension; H54.8 Legal blindness, as defined in USA; Z79.82 Long term (current) use of aspirin; Z79.84 Long term (current) use of oral hypoglycemic drugs; Z79.899 Other long term (current) drug therapy; Z87.891 Personal history of nicotine dependence
CPT/HCPCS: 36415; 71020; 80053; 82550; 82553; 83735; 83880; 84484; 85025; 85379; 85610; 85730; 93005; 99284